=== PATIENT | female | born 1955 | race African-American/Black ===

== ENCOUNTER 2020-03-15 20:21 | Emergency (ER) | payer OTHER ==
[~2020-03-15] VITALS: Ht 167.6 cm; Wt 80.0 kg
[2020-03-15 21:41] LABS: BASOPHILS % 0.3 % (0.0-2.0); EOSINOPHILS % 0.2 % (0.0-5.0); HEMATOCRIT. 35.9 % (36.0-48.0); HEMOGLOBIN. 11.8 g/dL (12.0-16.0); LYMPHOCYTES % 9.5 % (20.0-50.0); MEAN CORPUSCULAR HEMOGLOBIN 28.4 pg (28.0-32.0); MEAN CORPUSCULAR VOLUME 86.5 fL (81.0-99.0); MEAN PLATELET VOLUME 8.2 fl (7.4-10.4); MONOCYTES % 6.3 % (2.0-8.0); NEUTROPHILS % 83.7 % (40.0-76.0); PLATELET 250 x1000/uL (130-400); RED BLOOD CELL COUNT 4.15 mill/uL (4.2-5.4); RED CELL DISTRIBUTION WIDTH 14.7 % (11.6-14.6)
[2020-03-15 21:47] LABS: CHLORIDE 101 mEq/L (98-107)
[2020-03-16 02:14] VITALS: BP 142/81
== END 2020-03-16 02:43 | disposition home or self-care (01) ==
LOC: ER 20:21
DX: J06.9 Acute upper respiratory infection, unspecified (principal); R06.00 Dyspnea, unspecified; F17.290 Nicotine dependence, other tobacco product, uncomplicated
CPT/HCPCS: 36415; 71045; 80053; 83880; 84484; 85025; 87635; 93005; 99285; 99406; C9803

== ENCOUNTER 2020-03-19 11:13 | Inpatient (IN) | payer OTHER ==
[~2020-03-19] VITALS: Ht 162.6 cm; Wt 69.9 kg
[2020-03-19 12:10] LABS: BASOPHILS % 0.4 % (0.0-2.0); EOSINOPHILS % 0.1 % (0.0-5.0); HEMOGLOBIN. 12.3 g/dL (12.0-16.0); LYMPHOCYTES % 10.7 % (20.0-50.0); MEAN CORPUSCULAR HEMOGLOBIN 27.7 pg (28.0-32.0); MEAN CORPUSCULAR VOLUME 85.6 fL (81.0-99.0); MONOCYTES % 4.1 % (2.0-8.0); NEUTROPHILS % 84.7 % (40.0-76.0); PLATELET 282 x1000/uL (130-400); RED BLOOD CELL COUNT 4.44 mill/uL (4.2-5.4); RED CELL DISTRIBUTION WIDTH 14.9 % (11.6-14.6)
[2020-03-19 12:18] LABS: CHLORIDE 101 mEq/L (98-107)
[2020-03-19] MEDS ORDERED: SODIUM CHLORIDE 0.9% 1000ML BAG (SEPSIS BOLUS) IV ONE (12:45)
[2020-03-19] MEDS ORDERED: VANCOMYCIN 1 G PREMIX 200 ML IV ONE (12:45)
[2020-03-19] MEDS ORDERED: PIPERACILLIN/TAZ 3.375G PREMIX 50 ML IV ONE (12:45)
[2020-03-19 13:20] LABS: INR 1.1
[2020-03-19 16:00] VITALS: BP 146/85
[2020-03-19 17:42] VITALS: BP 146/85
[2020-03-19] MEDS ORDERED: INFLUENZA VACCINE 05/PF 0.5 ML VIAL IM ONE (18:00)
[2020-03-19] MEDS ORDERED: IPRATROPIUM/ALBUTEROL 0.5-3(2.5)MG/3ML NEB HHN PRN (18:45)
[2020-03-19] MEDS ORDERED: ACETAMINOPHEN 325MG TABLET PO PRN (18:45)
[2020-03-19] MEDS ORDERED: ZOLPIDEM TARTRATE 5MG TABLET PO PRN (18:45)
[2020-03-19 20:00] VITALS: BP 152/72
[2020-03-19] MEDS: PIPERACILLIN/TAZOBACTAM 3.375 G in DEXT 5% WATER 100 ML IV SCH (20:43)
[2020-03-19] MEDS: ENOXAPARIN 40MG/0.4ML SYR SUBCUT SCH (21:03)
[2020-03-19] MEDS: AZITHROMYCIN 500 MG in DEXT 5% WATER 250 ML IV SCH (21:12)
[2020-03-19] MEDS ORDERED: SODIUM CHLORIDE 0.9% INJ 3ML FLUSH IVF SCH (22:00)
[2020-03-20] VITALS: BP 129/72
[2020-03-20] MEDS: PIPERACILLIN/TAZOBACTAM 3.375 G in DEXT 5% WATER 100 ML IV SCH ×4 (02:10→21:40)
[2020-03-20 04:41] VITALS: BP 131/86
[2020-03-20 08:00] VITALS: BP 144/73
[2020-03-20 11:00] LABS: EOSINOPHILS % 0.6 % (0.0-5.0); HEMATOCRIT. 40.7 % (36.0-48.0); HEMOGLOBIN. 13.5 g/dL (12.0-16.0); LYMPHOCYTES % 18.4 % (20.0-50.0); MEAN CORPUSCULAR HEMOGLOBIN 28.1 pg (28.0-32.0); MEAN CORPUSCULAR VOLUME 85.1 fL (81.0-99.0); MEAN PLATELET VOLUME 8.5 fl (7.4-10.4); MONOCYTES % 5.3 % (2.0-8.0); NEUTROPHILS % 74.7 % (40.0-76.0); PLATELET 278 x1000/uL (130-400); RED BLOOD CELL COUNT 4.79 mill/uL (4.2-5.4); RED CELL DISTRIBUTION WIDTH 14.7 % (11.6-14.6)
[2020-03-20 12:00] VITALS: BP 119/77
[2020-03-20 12:02] LABS: CHLORIDE 95 mEq/L (98-107)
[2020-03-20] MEDS ORDERED: ALBU18HF2 IH (13:11)
[2020-03-20] MEDS ORDERED: IPRA3AMP9 NEB (13:11)
[2020-03-20] MEDS ORDERED: LEVO750T21 MT (13:11)
[2020-03-20] MEDS ORDERED: FLUT1DIS3 INH (13:11)
[2020-03-20] MEDS ORDERED: POTASSIUM CHLORIDE 20MEQ TABLET SR PO NR (13:30)
[2020-03-20 17:19] LABS: BG BASE EXCESS 4.4 mmol/L (-2.0-2.0); BG CARBOXYHEMOGLOBIN 0.6 % (0.5-1.5); BG METHEMOGLOBIN 0.2 % (0.0-1.5); BG OXYHEMOGLOBIN 96.2 % (94.0-97.0); BG PCO2 29.9 mmHg (35.0-45.0); BG PH 7.557 (7.350-7.450); BG PO2 87.8 mmHg (75.0-100.0); BG SAMPLE SITE LEFT RADIAL; BG TOTAL HEMOGLOBIN 13.7 g/dL (12.0-18.0); BG VENT MODE ROOM AIR
[2020-03-20 20:00] VITALS: BP 115/68
[2020-03-20] MEDS: ENOXAPARIN 40MG/0.4ML SYR SUBCUT SCH (22:00)
[2020-03-20] MEDS: AZITHROMYCIN 500 MG in DEXT 5% WATER 250 ML IV SCH (22:19)
[2020-03-20 23:56] LABS: CLARITY URINE CLEAR (CLEAR); COLOR URINE DARK YELLOW (YELLOW); KETONES URINE 1+ (NEGATIVE); LEUKOCYTE ESTERASE URINE TRACE (NEGATIVE); NITRITE URINE NEGATIVE (NEGATIVE); OCCULT BLOOD URINE NEGATIVE (NEGATIVE); PROTEIN URINE NEGATIVE (NEGATIVE); SPECIFIC GRAVITY URINE 1.016 (1.005-1.030)
[2020-03-21] VITALS: BP 132/62
[2020-03-21 00:51] LABS: *AMPHETAMINES SCREEN URINE NEGATIVE (NEGATIVE); *BARBITURATES SCREEN URINE NEGATIVE (NEGATIVE); *BENZODIAZEPINES SCREEN URINE NEGATIVE (NEGATIVE); *COCAINE SCREEN URINE NEGATIVE (NEGATIVE); CANNABINOID URINE SCREEN NEGATIVE (NEGATIVE); METHADONE URINE SCREEN NEGATIVE (NEGATIVE); OPIATES URINE SCREEN NEGATIVE (NEGATIVE); PHENCYCLIDINE URINE SCREEN NEGATIVE (NEGATIVE)
[2020-03-21 03:11] VITALS: BP 128/65
[2020-03-21 04:00] VITALS: BP 128/65
[2020-03-21 08:00] VITALS: BP 153/82
[2020-03-21 12:00] VITALS: BP 136/80
[2020-03-22] MEDS ORDERED: AZITHROMYCIN 500 MG TABLET PO SCH (20:00)
== END 2020-03-21 12:45 | disposition home or self-care (01) | DRG 871 ==
LOC: ER 11:13 → EDBEDREQ 12:44 → EDBEDREQSVC 12:44 → EDBEDREQTM 12:44 → 8WST 14:13 → EDBEDREQTM 14:16 → EDBEDREQ 14:16 → ENRESERV 14:54
PROVIDERS: ADMIT Ophthalmology; ATTEND Ophthalmology
DX: A41.9 Sepsis, unspecified organism (principal); E43 Unspecified severe protein-calorie malnutrition; J18.9 Pneumonia, unspecified organism; E87.1 Hypo-osmolality and hyponatremia; J44.0 Chronic obstructive pulmonary disease with (acute) lower respiratory infection; N39.0 Urinary tract infection, site not specified; I10 Essential (primary) hypertension; Z68.26 Body mass index [BMI] 26.0-26.9, adult; Z79.899 Other long term (current) drug therapy; J44.9 Chronic obstructive pulmonary disease, unspecified; Z87.891 Personal history of nicotine dependence
CPT/HCPCS: 36415; 36600; 71045; 71250; 80048; 80053; 80305; 81003; 82375; 82805; 83605; 84145; 84443; 84484; 85025; 90686; 93005; 96365; 99285; C1893; J0456; J1650; J2543; J3370; J7030; J7060

== ENCOUNTER 2020-03-21 14:43 | Emergency (ER) | payer OTHER ==
[~2020-03-21] VITALS: Ht 167.6 cm; Wt 85.0 kg
[~2020-03-21 14:43] MED LIST: ALBU18HF2 IH; FLUT1DIS3 INH; IPRA3AMP9 NEB; LEVO750T21 MT
[2020-03-21 16:41] LABS: BASOPHILS % 0.8 % (0.0-2.0); EOSINOPHILS % 0.1 % (0.0-5.0); HEMATOCRIT. 38.7 % (36.0-48.0); HEMOGLOBIN. 12.7 g/dL (12.0-16.0); LYMPHOCYTES % 18.9 % (20.0-50.0); MEAN CORPUSCULAR VOLUME 85.2 fL (81.0-99.0); MEAN PLATELET VOLUME 8.8 fl (7.4-10.4); MONOCYTES % 7.8 % (2.0-8.0); NEUTROPHILS % 72.4 % (40.0-76.0); PLATELET 306 x1000/uL (130-400); RED BLOOD CELL COUNT 4.55 mill/uL (4.2-5.4); RED CELL DISTRIBUTION WIDTH 14.7 % (11.6-14.6)
[2020-03-21 16:52] LABS: CHLORIDE 97 mEq/L (98-107)
[2020-03-21] MEDS ORDERED: SODIUM CHLORIDE 0.9% 1,000 ML IV ONE (17:00)
[2020-03-21] MEDS ORDERED: VANCOMYCIN 1 G PREMIX 200 ML IV NR (17:30)
[2020-03-21] MEDS ORDERED: PIPERACILLIN/TAZ 3.375G PREMIX 50 ML IV NR (17:30)
[2020-03-21] MEDS ORDERED: SODIUM CHLORIDE 0.9% 1000ML BAG (SEPSIS BOLUS) IV NR (17:30)
[2020-03-21 18:24] LABS: CLARITY URINE CLEAR (CLEAR); COLOR URINE ORANGE (YELLOW); KETONES URINE 1+ (NEGATIVE); LEUKOCYTE ESTERASE URINE NEGATIVE (NEGATIVE); NITRITE URINE NEGATIVE (NEGATIVE); OCCULT BLOOD URINE NEGATIVE (NEGATIVE); PROTEIN URINE NEGATIVE (NEGATIVE)
[2020-03-21 23:10] VITALS: BP 148/71
== END 2020-03-22 | disposition short-term general hospital (02) ==
LOC: ER 14:43 → CANBEDREQ 03-22 01:53
DX: A41.9 Sepsis, unspecified organism (principal); R65.20 Severe sepsis without septic shock; G93.49 Other encephalopathy; J44.9 Chronic obstructive pulmonary disease, unspecified
CPT/HCPCS: 36415; 70450; 71045; 80053; 81003; 83605; 83880; 84145; 84484; 85025; 87086; 93005; 96365; 96367; 99285; J2543; J3370

== ENCOUNTER 2020-05-31 07:23 | Inpatient (IN) | payer OTHER ==
[~2020-05-31] VITALS: Ht 165.1 cm; Wt 117.9 kg
[2020-05-31 10:15] LABS: HEMATOCRIT. 36.6 % (36.0-48.0); HEMOGLOBIN. 11.6 g/dL (12.0-16.0); MEAN CORPUSCULAR HEMOGLOBIN 25.5 pg (28.0-32.0); MEAN CORPUSCULAR VOLUME 80.8 fL (81.0-99.0); MEAN PLATELET VOLUME 8.7 fl (7.4-10.4); PLATELET 209 x1000/uL (130-400); RED BLOOD CELL COUNT 4.53 mill/uL (4.2-5.4); RED CELL DISTRIBUTION WIDTH 15.2 % (11.6-14.6)
[2020-05-31] MEDS ORDERED: AZITHROMYCIN 500 MG in DEXT 5% WATER 250 ML IV ONE (10:15)
[2020-05-31] MEDS ORDERED: CEFTRIAXONE 1 G PREMIX 50 ML IV ONE (10:15)
[2020-05-31 10:20] LABS: CHLORIDE 105 mEq/L (98-107)
[2020-05-31 10:28] LABS: D-DIMER 1.26 mg/L FEU (<0.50); PROTHROMBIN TIME 10.5 sec (9.6-11.0)
[2020-05-31 10:29] LABS: CREATINE KINASE 91 IU/L (26-192)
[2020-05-31 11:04] LABS: PLATELET ESTIMATE NORMAL
[2020-05-31 13:30] LABS: BG CARBOXYHEMOGLOBIN 0.4 % (0.5-1.5); BG DEOXYHEMOGLOBIN 2.7 % (0.0-5.0); BG METHEMOGLOBIN 0.4 % (0.0-1.5); BG OXYGEN SATURATION 97.3 % (92.0-98.5); BG OXYHEMOGLOBIN 96.5 % (94.0-97.0); BG PCO2 54.4 mmHg (35.0-45.0); BG PH 7.313 (7.350-7.450); BG PO2 105.1 mmHg (75.0-100.0); BG SAMPLE SITE RIGHT RADIAL; BG TOTAL HEMOGLOBIN 11.6 g/dL (12.0-18.0); BG VENT MODE NASAL CANNULA
[2020-06-01] VITALS: BP 122/63
[2020-06-01 01:31] VITALS: BP 128/73
[2020-06-01] MEDS: DEXAMETHASONE 4MG/ML 1ML VIAL IV SCH ×2 (02:52→22:41)
[2020-06-01] MEDS ORDERED: SODIUM POLYSTYRENE SULFONATE 15 G/60 ML BOT PO NR (04:00)
[2020-06-01] MEDS ORDERED: DEXAMETHASONE 4MG/ML 1ML VIAL IV SCH (06:00)
[2020-06-01] MEDS: BLOOD SUGAR DIAGNOSTIC STRIP TEST SCH ×4 (06:40→21:28)
[2020-06-01 06:46] LABS: MEAN CORPUSCULAR HEMOGLOBIN 26.1 pg (28.0-32.0); MEAN CORPUSCULAR VOLUME 80.7 fL (81.0-99.0); PLATELET 212 x1000/uL (130-400); RED BLOOD CELL COUNT 4.21 mill/uL (4.2-5.4); RED CELL DISTRIBUTION WIDTH 15.1 % (11.6-14.6)
[2020-06-01] MEDS: INSULIN LISPRO 100 UNITS/ML SUBCUT SCH ×4 (07:10→21:00)
[2020-06-01 08:00] VITALS: BP 113/68
[2020-06-01] MEDS ORDERED: ENOXAPARIN 40MG/0.4ML SYR SUBCUT SCH (09:00)
[2020-06-01 09:12] LABS: CHLORIDE 101 mEq/L (98-107)
[2020-06-01 09:21] LABS: LDL CHOLESTEROL 71 mg/dL (5-100)
[2020-06-01 09:25] LABS: HDL CHOLESTEROL 78 mg/dL (40-59)
[2020-06-01] MEDS: FAMOTIDINE 20MG TABLET PO SCH ×2 (09:53→22:41)
[2020-06-01] MEDS: SODIUM CHLORIDE 0.45% 1,000 ML IV SCH ×2 (09:54→16:20)
[2020-06-01 12:00] VITALS: BP 128/74
[2020-06-01] MEDS ORDERED: GUAIFENESIN 600MG ER TABLET PO SCH (12:00)
[2020-06-01] MEDS ORDERED: CEFTRIAXONE 1 G PREMIX 50 ML IV SCH (12:00)
[2020-06-01 13:20] LABS: BG CARBOXYHEMOGLOBIN 0.3 % (0.5-1.5); BG DEOXYHEMOGLOBIN 14.6 % (0.0-5.0); BG HCO3 ACT 30.4 mmol/L (22.0-26.0); BG METHEMOGLOBIN 0.3 % (0.0-1.5); BG OXYGEN SATURATION 85.3 % (92.0-98.5); BG OXYHEMOGLOBIN 84.8 % (94.0-97.0); BG PCO2 48.9 mmHg (35.0-45.0); BG PH 7.412 (7.350-7.450); BG PO2 48.6 mmHg (75.0-100.0); BG SAMPLE SITE RIGHT RADIAL; BG TOTAL HEMOGLOBIN 10.9 g/dL (12.0-18.0); BG VENT MODE ROOM AIR
[2020-06-01] MEDS: CEFTRIAXONE 1,000 MG in DEXTROSE 5% WATER 50 ML IV SCH (14:58)
[2020-06-01] MEDS: ALBUTEROL 6.7GM HFA INHALER ORI SCH ×3 (14:59→22:40)
[2020-06-01] MEDS ORDERED: HYDROCODONE/ACETAMINOPHEN 5/325MG TABLET PO PRN (15:45)
[2020-06-01 16:00] VITALS: BP 108/56
[2020-06-01] MEDS: AZITHROMYCIN 500 MG in DEXT 5% WATER 250 ML IV SCH (18:34)
[2020-06-01] MEDS: LORAZEPAM 2MG/ML CPJ IV PRN (18:35)
[2020-06-01 20:00] VITALS: BP 101/53
[2020-06-01] MEDS ORDERED: DIPHENHYDRAMINE 50MG/ML VIAL IM PRN (21:30)
[2020-06-01] MEDS: GUAIFENESIN 600MG ER TABLET PO SCH (22:41)
[2020-06-02] VITALS (41 sets, daily range): BP systolic 54–149; BP diastolic 24–95
[2020-06-02] MEDS: ALBUTEROL 6.7GM HFA INHALER ORI SCH ×2 (01:26→06:20)
[2020-06-02 05:54] LABS: CHLORIDE 99 mEq/L (98-107)
[2020-06-02 06:10] LABS: HEMATOCRIT. 31.6 % (36.0-48.0); HEMOGLOBIN. 10.4 g/dL (12.0-16.0); MEAN CORPUSCULAR HEMOGLOBIN 26.2 pg (28.0-32.0); MEAN CORPUSCULAR VOLUME 79.7 fL (81.0-99.0); MEAN PLATELET VOLUME 9.4 fl (7.4-10.4); PLATELET 225 x1000/uL (130-400); RED BLOOD CELL COUNT 3.96 mill/uL (4.2-5.4); RED CELL DISTRIBUTION WIDTH 14.6 % (11.6-14.6)
[2020-06-02] MEDS: SODIUM CHLORIDE 0.45% 1,000 ML IV SCH (06:19)
[2020-06-02] MEDS: BLOOD SUGAR DIAGNOSTIC STRIP TEST SCH ×4 (06:19→21:00)
[2020-06-02] MEDS: INSULIN LISPRO 100 UNITS/ML SUBCUT SCH ×4 (07:10→22:28)
[2020-06-02] MEDS: GUAIFENESIN 600MG ER TABLET PO SCH ×2 (10:29→21:00)
[2020-06-02] MEDS: ENOXAPARIN 30MG/0.3ML SYR SUBCUT SCH ×2 (10:29→22:13)
[2020-06-02] MEDS: FAMOTIDINE 20MG TABLET PO SCH ×2 (10:29→22:14)
[2020-06-02] MEDS: DEXAMETHASONE 4MG/ML 1ML VIAL IV SCH ×2 (10:30→22:14)
[2020-06-02 11:25] LABS: BG BASE EXCESS -8.2 mmol/L (-2.0-2.0); BG CARBOXYHEMOGLOBIN 0.3 % (0.5-1.5); BG DEOXYHEMOGLOBIN 7.5 % (0.0-5.0); BG FRACTION INSPIRED OXYGEN 100; BG HCO3 ACT 22.9 mmol/L (22.0-26.0); BG METHEMOGLOBIN 0.3 % (0.0-1.5); BG OXYGEN SATURATION 92.5 % (92.0-98.5); BG OXYHEMOGLOBIN 91.9 % (94.0-97.0); BG PCO2 80.6 mmHg (35.0-45.0); BG PH 7.072 (7.350-7.450); BG PO2 88.9 mmHg (75.0-100.0); BG SAMPLE SITE RIGHT RADIAL; BG TOTAL HEMOGLOBIN 11.6 g/dL (12.0-18.0)
[2020-06-02] MEDS ORDERED: SODIUM CHLORIDE 0.9% 1,000 ML IV SCH ×3 (12:15→13:00)
[2020-06-02] MEDS: LORAZEPAM 2MG/ML CPJ IV PRN (12:16)
[2020-06-02] MEDS: PROPOFOL 10MG/ML 100ML 100 ML IV PRN ×3 (12:24→22:04)
[2020-06-02] MEDS: NOREPINEPHRINE 32 MG in DEXT 5% WATER 218 ML IV PRN (13:21)
[2020-06-02] MEDS: SODIUM CHLORIDE 0.9% 1,000 ML IV SCH ×2 (13:32→23:00)
[2020-06-02] MEDS: FENTANYL CITRATE/PF 2,500 MCG in SODIUM CHLORIDE 0.9% 200 ML IV PRN (15:51)
[2020-06-02 17:28] LABS: BG BASE EXCESS 0.4 mmol/L (-2.0-2.0); BG CARBOXYHEMOGLOBIN 0.3 % (0.5-1.5); BG DEOXYHEMOGLOBIN 1.3 % (0.0-5.0); BG FRACTION INSPIRED OXYGEN 100; BG HCO3 ACT 25.5 mmol/L (22.0-26.0); BG METHEMOGLOBIN 0.3 % (0.0-1.5); BG OXYGEN SATURATION 98.7 % (92.0-98.5); BG OXYHEMOGLOBIN 98.1 % (94.0-97.0); BG PCO2 43.1 mmHg (35.0-45.0); BG PO2 148.7 mmHg (75.0-100.0); BG SAMPLE SITE RIGHT BRACHIAL; BG TOTAL HEMOGLOBIN 11.5 g/dL (12.0-18.0); BG TOTAL RESPIRATORY RATE 21 b/min; BG VENT MODE VENT - AC
[2020-06-02 18:29] LABS: PLATELET ESTIMATE NORMAL
[2020-06-02] MEDS: CEFTRIAXONE 1,000 MG in DEXTROSE 5% WATER 50 ML IV SCH (20:26)
[2020-06-02] MEDS: AZITHROMYCIN 500 MG in DEXT 5% WATER 250 ML IV SCH (21:03)
[2020-06-03] VITALS (66 sets, daily range): BP systolic 99–149; BP diastolic 52–88
[2020-06-03] MEDS: PROPOFOL 10MG/ML 100ML 100 ML IV PRN ×4 (02:39→20:01)
[2020-06-03 05:33] LABS: HEMATOCRIT. 31.2 % (36.0-48.0); HEMOGLOBIN. 10.3 g/dL (12.0-16.0); MEAN CORPUSCULAR HEMOGLOBIN 26.1 pg (28.0-32.0); MEAN CORPUSCULAR VOLUME 78.9 fL (81.0-99.0); MEAN PLATELET VOLUME 9.8 fl (7.4-10.4); PLATELET 268 x1000/uL (130-400); RED BLOOD CELL COUNT 3.95 mill/uL (4.2-5.4); RED CELL DISTRIBUTION WIDTH 14.6 % (11.6-14.6)
[2020-06-03 05:44] LABS: CHLORIDE 100 mEq/L (98-107)
[2020-06-03] MEDS: FENTANYL CITRATE/PF 2,500 MCG in SODIUM CHLORIDE 0.9% 200 ML IV PRN (07:24)
[2020-06-03] MEDS: BLOOD SUGAR DIAGNOSTIC STRIP TEST SCH ×4 (07:40→21:12)
[2020-06-03] MEDS: INSULIN LISPRO 100 UNITS/ML SUBCUT SCH ×4 (07:56→21:00)
[2020-06-03] MEDS: SODIUM CHLORIDE 0.9% 1,000 ML IV SCH ×2 (08:53→17:45)
[2020-06-03] MEDS: FAMOTIDINE 20MG TABLET PO SCH ×2 (08:53→21:19)
[2020-06-03] MEDS: GUAIFENESIN 600MG ER TABLET PO SCH ×2 (08:54→21:19)
[2020-06-03] MEDS: ENOXAPARIN 30MG/0.3ML SYR SUBCUT SCH ×2 (08:54→21:22)
[2020-06-03] MEDS: DEXAMETHASONE 4MG/ML 1ML VIAL IV SCH ×2 (09:20→21:29)
[2020-06-03 11:14] LABS: BG BASE EXCESS 2.8 mmol/L (-2.0-2.0); BG CARBOXYHEMOGLOBIN 0.3 % (0.5-1.5); BG DEOXYHEMOGLOBIN 0.8 % (0.0-5.0); BG HCO3 ACT 26.9 mmol/L (22.0-26.0); BG METHEMOGLOBIN 0.3 % (0.0-1.5); BG OXYGEN SATURATION 99.2 % (92.0-98.5); BG OXYHEMOGLOBIN 98.6 % (94.0-97.0); BG PCO2 39.3 mmHg (35.0-45.0); BG PH 7.453 (7.350-7.450); BG PO2 148.9 mmHg (75.0-100.0); BG SAMPLE SITE LEFT RADIAL; BG TOTAL HEMOGLOBIN 10.6 g/dL (12.0-18.0); BG VENT MODE VENT - AC
[2020-06-03] MEDS ORDERED: SODIUM CHLORIDE 0.9% 1,000 ML IV SCH (13:00)
[2020-06-03] MEDS: CEFTRIAXONE 1,000 MG in DEXTROSE 5% WATER 50 ML IV SCH (15:01)
[2020-06-03] MEDS: AZITHROMYCIN 500 MG in DEXT 5% WATER 250 ML IV SCH (15:07)
[2020-06-04] VITALS (44 sets, daily range): BP systolic 102–142; BP diastolic 57–89
[2020-06-04] MEDS: FENTANYL CITRATE/PF 2,500 MCG in SODIUM CHLORIDE 0.9% 200 ML IV PRN ×2 (01:57→17:00)
[2020-06-04] MEDS: PROPOFOL 10MG/ML 100ML 100 ML IV PRN ×3 (03:16→20:01)
[2020-06-04] MEDS: SODIUM CHLORIDE 0.9% 1,000 ML IV SCH ×3 (05:00→23:31)
[2020-06-04] MEDS: BLOOD SUGAR DIAGNOSTIC STRIP TEST SCH ×4 (07:40→23:29)
[2020-06-04] MEDS: INSULIN LISPRO 100 UNITS/ML SUBCUT SCH ×4 (08:10→23:30)
[2020-06-04] MEDS: ENOXAPARIN 30MG/0.3ML SYR SUBCUT SCH ×2 (09:00→20:57)
[2020-06-04] MEDS: GUAIFENESIN 600MG ER TABLET PO SCH ×2 (10:13→20:57)
[2020-06-04] MEDS: FAMOTIDINE 20MG TABLET PO SCH ×2 (10:13→20:57)
[2020-06-04] MEDS: DEXAMETHASONE 4MG/ML 1ML VIAL IV SCH (10:16)
[2020-06-04 15:16] LABS: PLATELET ESTIMATE NORMAL
[2020-06-04] MEDS: CEFTRIAXONE 1,000 MG in DEXTROSE 5% WATER 50 ML IV SCH (16:28)
[2020-06-04] MEDS: AZITHROMYCIN 500 MG in DEXT 5% WATER 250 ML IV SCH (17:39)
[2020-06-04 18:15] LABS: BG BASE EXCESS 5.7 mmol/L (-2.0-2.0); BG CARBOXYHEMOGLOBIN 0.2 % (0.5-1.5); BG DEOXYHEMOGLOBIN 3.3 % (0.0-5.0); BG FRACTION INSPIRED OXYGEN 80; BG HCO3 ACT 31.6 mmol/L (22.0-26.0); BG METHEMOGLOBIN 0.2 % (0.0-1.5); BG OXYGEN SATURATION 96.7 % (92.0-98.5); BG OXYHEMOGLOBIN 96.3 % (94.0-97.0); BG PH 7.393 (7.350-7.450); BG PO2 95.9 mmHg (75.0-100.0); BG SAMPLE SITE RIGHT RADIAL; BG TOTAL HEMOGLOBIN 10.1 g/dL (12.0-18.0); BG VENT MODE VENT - AC
[2020-06-04 21:02] LABS: BASOPHILS % 0.3 % (0.0-2.0); HEMATOCRIT. 32.9 % (36.0-48.0); HEMOGLOBIN. 10.5 g/dL (12.0-16.0); LYMPHOCYTES % 18.5 % (20.0-50.0); MEAN CORPUSCULAR HEMOGLOBIN 25.7 pg (28.0-32.0); MEAN CORPUSCULAR VOLUME 80.2 fL (81.0-99.0); MEAN PLATELET VOLUME 9.7 fl (7.4-10.4); MONOCYTES % 7.8 % (2.0-8.0); NEUTROPHILS % 73.4 % (40.0-76.0); PLATELET 235 x1000/uL (130-400); RED CELL DISTRIBUTION WIDTH 15.4 % (11.6-14.6)
[2020-06-04 21:11] LABS: CHLORIDE 103 mEq/L (98-107)
[2020-06-05] VITALS (48 sets, daily range): BP systolic 98–149; BP diastolic 59–85
[2020-06-05] MEDS: PROPOFOL 10MG/ML 100ML 100 ML IV PRN ×4 (01:48→20:29)
[2020-06-05] MEDS: INSULIN LISPRO 100 UNITS/ML SUBCUT SCH ×3 (05:12→18:00)
[2020-06-05] MEDS: BLOOD SUGAR DIAGNOSTIC STRIP TEST SCH ×3 (05:12→17:50)
[2020-06-05] MEDS: GUAIFENESIN 600MG ER TABLET PO SCH (09:00)
[2020-06-05] MEDS: DEXAMETHASONE 10 MG/ML VIAL IV SCH (09:26)
[2020-06-05] MEDS: FAMOTIDINE 20MG TABLET PO SCH ×2 (09:26→21:57)
[2020-06-05] MEDS: ENOXAPARIN 30MG/0.3ML SYR SUBCUT SCH (09:27)
[2020-06-05] MEDS: SODIUM CHLORIDE 0.9% 1,000 ML IV SCH ×2 (09:57→20:27)
[2020-06-05 12:55] LABS: BG BASE EXCESS -0.7 mmol/L (-2.0-2.0); BG CARBOXYHEMOGLOBIN 0.2 % (0.5-1.5); BG DEOXYHEMOGLOBIN 7.6 % (0.0-5.0); BG FRACTION INSPIRED OXYGEN 70; BG HCO3 ACT 24.7 mmol/L (22.0-26.0); BG METHEMOGLOBIN 0.1 % (0.0-1.5); BG OXYGEN SATURATION 92.4 % (92.0-98.5); BG OXYHEMOGLOBIN 92.1 % (94.0-97.0); BG PCO2 43.9 mmHg (35.0-45.0); BG PH 7.368 (7.350-7.450); BG PO2 70.1 mmHg (75.0-100.0); BG SAMPLE SITE RIGHT BRACHIAL; BG TOTAL HEMOGLOBIN 11.6 g/dL (12.0-18.0); BG VENT MODE VENT - AC
[2020-06-05] MEDS: FENTANYL CITRATE/PF 2,500 MCG in SODIUM CHLORIDE 0.9% 200 ML IV PRN (14:55)
[2020-06-05] MEDS: ALBUTEROL 6.7GM HFA INHALER ORI SCH (20:24)
[2020-06-06] VITALS (71 sets, daily range): BP systolic 80–204; BP diastolic 30–114
[2020-06-06] MEDS: ENOXAPARIN 30MG/0.3ML SYR SUBCUT SCH ×3 (00:39→21:52)
[2020-06-06] MEDS: BLOOD SUGAR DIAGNOSTIC STRIP TEST SCH ×4 (00:49→18:00)
[2020-06-06] MEDS: PROPOFOL 10MG/ML 100ML 100 ML IV PRN ×2 (02:00→10:16)
[2020-06-06] MEDS: FENTANYL CITRATE/PF 2,500 MCG in SODIUM CHLORIDE 0.9% 200 ML IV PRN ×2 (02:28→13:09)
[2020-06-06] MEDS: ALBUTEROL 6.7GM HFA INHALER ORI SCH (03:48)
[2020-06-06] MEDS: INSULIN LISPRO 100 UNITS/ML SUBCUT SCH ×4 (05:23→18:00)
[2020-06-06 10:06] LABS: BG BASE EXCESS -2.6 mmol/L (-2.0-2.0); BG CARBOXYHEMOGLOBIN 0.3 % (0.5-1.5); BG FRACTION INSPIRED OXYGEN 70; BG HCO3 ACT 26.2 mmol/L (22.0-26.0); BG METHEMOGLOBIN 0.2 % (0.0-1.5); BG OXYHEMOGLOBIN 96.5 % (94.0-97.0); BG PCO2 66.5 mmHg (35.0-45.0); BG PH 7.214 (7.350-7.450); BG PO2 108.2 mmHg (75.0-100.0); BG SAMPLE SITE RIGHT RADIAL; BG VENT MODE VENT - AC
[2020-06-06] MEDS: DEXAMETHASONE 10 MG/ML VIAL IV SCH (10:10)
[2020-06-06] MEDS: FAMOTIDINE 20MG TABLET PO SCH ×2 (10:11→21:52)
[2020-06-06] MEDS: SODIUM CHLORIDE 0.9% 1,000 ML IV SCH ×2 (10:17→19:13)
[2020-06-06 13:58] LABS: BASOPHILS % 0.3 % (0.0-2.0); HEMATOCRIT. 32.5 % (36.0-48.0); HEMOGLOBIN. 10.2 g/dL (12.0-16.0); LYMPHOCYTES % 13.5 % (20.0-50.0); MEAN CORPUSCULAR HEMOGLOBIN 25.1 pg (28.0-32.0); MEAN CORPUSCULAR VOLUME 80.1 fL (81.0-99.0); MEAN PLATELET VOLUME 9.3 fl (7.4-10.4); MONOCYTES % 7.5 % (2.0-8.0); NEUTROPHILS % 78.7 % (40.0-76.0); PLATELET 206 x1000/uL (130-400); RED BLOOD CELL COUNT 4.06 mill/uL (4.2-5.4); RED CELL DISTRIBUTION WIDTH 14.8 % (11.6-14.6)
[2020-06-06 14:17] LABS: CHLORIDE 109 mEq/L (98-107)
[2020-06-06 14:22] LABS: BG BASE EXCESS -1.3 mmol/L (-2.0-2.0); BG CARBOXYHEMOGLOBIN 0.4 % (0.5-1.5); BG DEOXYHEMOGLOBIN 4.6 % (0.0-5.0); BG FRACTION INSPIRED OXYGEN 70; BG HCO3 ACT 23.2 mmol/L (22.0-26.0); BG METHEMOGLOBIN 0.3 % (0.0-1.5); BG OXYGEN SATURATION 95.4 % (92.0-98.5); BG OXYHEMOGLOBIN 94.7 % (94.0-97.0); BG PCO2 38.1 mmHg (35.0-45.0); BG PH 7.403 (7.350-7.450); BG PO2 75.6 mmHg (75.0-100.0); BG SAMPLE SITE RIGHT RADIAL; BG TOTAL HEMOGLOBIN 11.2 g/dL (12.0-18.0); BG TOTAL RESPIRATORY RATE 24 b/min; BG VENT MODE VENT - AC
[2020-06-06] MEDS: NOREPINEPHRINE 32 MG in DEXT 5% WATER 218 ML IV PRN (14:41)
[2020-06-06] MEDS: GUAIFENESIN 600MG ER TABLET PO SCH ×2 (21:00→21:59)
[2020-06-07] VITALS (81 sets, daily range): BP systolic 83–157; BP diastolic 33–80
[2020-06-07] MEDS: FENTANYL CITRATE/PF 2,500 MCG in SODIUM CHLORIDE 0.9% 200 ML IV PRN ×2 (00:01→10:25)
[2020-06-07] MEDS: PROPOFOL 10MG/ML 100ML 100 ML IV PRN ×3 (00:02→10:20)
[2020-06-07] MEDS: BLOOD SUGAR DIAGNOSTIC STRIP TEST SCH ×5 (00:10→23:15)
[2020-06-07] MEDS: GUAIFENESIN 600MG ER TABLET PO SCH ×3 (00:10→21:00)
[2020-06-07] MEDS: SODIUM CHLORIDE 0.9% 1,000 ML IV SCH ×2 (05:00→12:24)
[2020-06-07] MEDS ORDERED: PROPOFOL 10MG/ML 100ML 100 ML IV PRN (05:15)
[2020-06-07] MEDS: INSULIN LISPRO 100 UNITS/ML SUBCUT SCH ×5 (06:00→23:15)
[2020-06-07 06:20] LABS: BASOPHILS % 0.4 % (0.0-2.0); HEMATOCRIT. 35.3 % (36.0-48.0); HEMOGLOBIN. 11.4 g/dL (12.0-16.0); LYMPHOCYTES % 15.5 % (20.0-50.0); MEAN CORPUSCULAR HEMOGLOBIN 25.7 pg (28.0-32.0); MEAN CORPUSCULAR VOLUME 80.1 fL (81.0-99.0); MEAN PLATELET VOLUME 10.2 fl (7.4-10.4); MONOCYTES % 5.3 % (2.0-8.0); NEUTROPHILS % 78.8 % (40.0-76.0); PLATELET 266 x1000/uL (130-400); RED BLOOD CELL COUNT 4.41 mill/uL (4.2-5.4); RED CELL DISTRIBUTION WIDTH 15.1 % (11.6-14.6)
[2020-06-07 06:25] LABS: CHLORIDE 109 mEq/L (98-107)
[2020-06-07] MEDS: DEXAMETHASONE 10 MG/ML VIAL IV SCH (10:11)
[2020-06-07] MEDS: FAMOTIDINE 20MG TABLET PO SCH ×2 (10:13→23:15)
[2020-06-07] MEDS: ENOXAPARIN 30MG/0.3ML SYR SUBCUT SCH ×2 (10:17→23:15)
[2020-06-07 10:29] LABS: BG BASE EXCESS -3.3 mmol/L (-2.0-2.0); BG CARBOXYHEMOGLOBIN 0.3 % (0.5-1.5); BG FRACTION INSPIRED OXYGEN 70; BG HCO3 ACT 23.7 mmol/L (22.0-26.0); BG METHEMOGLOBIN 0.2 % (0.0-1.5); BG OXYHEMOGLOBIN 90.5 % (94.0-97.0); BG PCO2 50.7 mmHg (35.0-45.0); BG PH 7.287 (7.350-7.450); BG PO2 68.4 mmHg (75.0-100.0); BG SAMPLE SITE RIGHT RADIAL; BG TOTAL HEMOGLOBIN 11.8 g/dL (12.0-18.0); BG VENT MODE VENT - AC
[2020-06-07] MEDS ORDERED: MIDAZOLAM HCL 100 MG in DEXT 5% WATER 80 ML IV PRN (11:45)
[2020-06-07 12:59] LABS: CLARITY URINE CLOUDY (CLEAR); COLOR URINE YELLOW (YELLOW); KETONES URINE NEGATIVE (NEGATIVE); LEUKOCYTE ESTERASE URINE 1+ (NEGATIVE); NITRITE URINE NEGATIVE (NEGATIVE); OCCULT BLOOD URINE NEGATIVE (NEGATIVE); PH URINE 5.5 (4.5-8.0); PROTEIN URINE 1+ (NEGATIVE); SPECIFIC GRAVITY URINE 1.031 (1.005-1.030)
[2020-06-07] MEDS: LORAZEPAM 2MG/ML CPJ IV PRN (15:38)
[2020-06-07] MEDS ORDERED: LORAZEPAM 2MG/ML CPJ ONE (15:38)
[2020-06-07] MEDS ORDERED: FENTANYL CITRATE/PF 1,000 MCG in SODIUM CHLORIDE 0.9% 80 ML IV PRN (16:15)
[2020-06-07] MEDS ORDERED: MIDAZOLAM HCL 100 MG in SODIUM CHLORIDE 0.9% 80 ML IV PRN (18:30)
[2020-06-07] MEDS: IPRATROPIUM/ALBUTEROL 0.5-3(2.5)MG/3ML NEB HHN SCH (20:46)
[2020-06-07] MEDS: FENTANYL CITRATE 2,500 MCG in SODIUM CHLORIDE 0.9% 200 ML IV PRN (20:52)
[2020-06-08] VITALS (92 sets, daily range): BP systolic 93–147; BP diastolic 23–92
[2020-06-08] MEDS: FENTANYL CITRATE 2,500 MCG in SODIUM CHLORIDE 0.9% 200 ML IV PRN ×3 (02:55→17:57)
[2020-06-08] MEDS: MIDAZOLAM HCL 100 MG in DEXT 5% WATER 80 ML IV PRN ×3 (02:57→23:08)
[2020-06-08] MEDS: IPRATROPIUM/ALBUTEROL 0.5-3(2.5)MG/3ML NEB HHN SCH ×3 (03:06→20:07)
[2020-06-08 05:46] LABS: CHLORIDE 110 mEq/L (98-107)
[2020-06-08 05:57] LABS: HEMATOCRIT 30.6 % (36.0-48.0); MEAN CORPUSCULAR HEMOGLOBIN 25.8 pg (28.0-32.0); MEAN CORPUSCULAR VOLUME 79.1 fL (81.0-99.0); PLATELET 188 x1000/uL (130-400); RED BLOOD CELL COUNT 3.87 mill/uL (4.2-5.4); RED CELL DISTRIBUTION WIDTH 15.3 % (11.6-14.6)
[2020-06-08] MEDS: BLOOD SUGAR DIAGNOSTIC STRIP TEST SCH ×3 (06:00→18:00)
[2020-06-08] MEDS: INSULIN LISPRO 100 UNITS/ML SUBCUT SCH ×3 (06:00→18:00)
[2020-06-08 09:09] LABS: BG BASE EXCESS -3.5 mmol/L (-2.0-2.0); BG CARBOXYHEMOGLOBIN 0.1 % (0.5-1.5); BG FRACTION INSPIRED OXYGEN 70; BG HCO3 ACT 24.4 mmol/L (22.0-26.0); BG METHEMOGLOBIN 0.3 % (0.0-1.5); BG OXYHEMOGLOBIN 96.6 % (94.0-97.0); BG PCO2 57.9 mmHg (35.0-45.0); BG PH 7.243 (7.350-7.450); BG SAMPLE SITE RIGHT RADIAL; BG TOTAL HEMOGLOBIN 11.3 g/dL (12.0-18.0); BG TOTAL RESPIRATORY RATE 23 b/min; BG VENT MODE VENT - AC
[2020-06-08] MEDS: ENOXAPARIN 30MG/0.3ML SYR SUBCUT SCH ×2 (10:57→22:44)
[2020-06-08] MEDS: DEXAMETHASONE 10 MG/ML VIAL IV SCH (10:57)
[2020-06-08] MEDS: FAMOTIDINE 20MG TABLET PO SCH ×2 (10:57→22:44)
[2020-06-08] MEDS: GUAIFENESIN 600MG ER TABLET PO SCH ×2 (10:58→20:41)
[2020-06-08 12:31] LABS: BG BASE EXCESS -1.8 mmol/L (-2.0-2.0); BG CARBOXYHEMOGLOBIN 0.2 % (0.5-1.5); BG DEOXYHEMOGLOBIN 6.6 % (0.0-5.0); BG HCO3 ACT 24.8 mmol/L (22.0-26.0); BG METHEMOGLOBIN 0.1 % (0.0-1.5); BG OXYGEN SATURATION 93.4 % (92.0-98.5); BG OXYHEMOGLOBIN 93.1 % (94.0-97.0); BG PCO2 50.4 mmHg (35.0-45.0); BG PO2 75.3 mmHg (75.0-100.0); BG SAMPLE SITE RIGHT RADIAL; BG TOTAL HEMOGLOBIN 11.7 g/dL (12.0-18.0); BG VENT MODE VENT - AC
[2020-06-08 16:18] LABS: BG BASE EXCESS -1.9 mmol/L (-2.0-2.0); BG CARBOXYHEMOGLOBIN 0.3 % (0.5-1.5); BG DEOXYHEMOGLOBIN 2.9 % (0.0-5.0); BG FRACTION INSPIRED OXYGEN 70; BG HCO3 ACT 22.9 mmol/L (22.0-26.0); BG METHEMOGLOBIN 0.3 % (0.0-1.5); BG OXYGEN SATURATION 97.1 % (92.0-98.5); BG OXYHEMOGLOBIN 96.5 % (94.0-97.0); BG PCO2 39.2 mmHg (35.0-45.0); BG PH 7.385 (7.350-7.450); BG PO2 91.8 mmHg (75.0-100.0); BG SAMPLE SITE RIGHT RADIAL; BG TOTAL HEMOGLOBIN 11.2 g/dL (12.0-18.0); BG TOTAL RESPIRATORY RATE 22 b/min; BG VENT MODE VENT - AC
[2020-06-09] VITALS (122 sets, daily range): BP systolic 92–155; BP diastolic 46–82
[2020-06-09] MEDS: FENTANYL CITRATE 2,500 MCG in SODIUM CHLORIDE 0.9% 200 ML IV PRN ×3 (01:46→18:15)
[2020-06-09] MEDS: IPRATROPIUM/ALBUTEROL 0.5-3(2.5)MG/3ML NEB HHN SCH ×5 (02:17→20:50)
[2020-06-09] MEDS: BLOOD SUGAR DIAGNOSTIC STRIP TEST SCH ×4 (06:00→18:36)
[2020-06-09] MEDS: INSULIN LISPRO 100 UNITS/ML SUBCUT SCH ×4 (06:00→18:36)
[2020-06-09 06:21] LABS: CHLORIDE 110 mEq/L (98-107)
[2020-06-09 06:22] LABS: BASOPHILS % 0.1 % (0.0-2.0); HEMATOCRIT. 29.9 % (36.0-48.0); HEMOGLOBIN. 9.6 g/dL (12.0-16.0); LYMPHOCYTES % 13.3 % (20.0-50.0); MEAN CORPUSCULAR HEMOGLOBIN 25.3 pg (28.0-32.0); MEAN CORPUSCULAR VOLUME 78.6 fL (81.0-99.0); MEAN PLATELET VOLUME 9.3 fl (7.4-10.4); MONOCYTES % 7.1 % (2.0-8.0); NEUTROPHILS % 79.5 % (40.0-76.0); PLATELET 135 x1000/uL (130-400); RED BLOOD CELL COUNT 3.81 mill/uL (4.2-5.4); RED CELL DISTRIBUTION WIDTH 15.1 % (11.6-14.6)
[2020-06-09] MEDS: MIDAZOLAM HCL 100 MG in DEXT 5% WATER 80 ML IV PRN ×3 (06:59→21:39)
[2020-06-09] MEDS: ENOXAPARIN 30MG/0.3ML SYR SUBCUT SCH ×2 (09:02→21:40)
[2020-06-09] MEDS: DEXAMETHASONE 10 MG/ML VIAL IV SCH (09:02)
[2020-06-09] MEDS: GUAIFENESIN 600MG ER TABLET PO SCH ×2 (09:02→21:00)
[2020-06-09] MEDS: FAMOTIDINE 20MG TABLET PO SCH ×2 (09:02→21:41)
[2020-06-09 13:22] LABS: BG BASE EXCESS -4.5 mmol/L (-2.0-2.0); BG CARBOXYHEMOGLOBIN 0.3 % (0.5-1.5); BG DEOXYHEMOGLOBIN 15.4 % (0.0-5.0); BG FRACTION INSPIRED OXYGEN 60; BG METHEMOGLOBIN 0.3 % (0.0-1.5); BG OXYGEN SATURATION 84.5 % (92.0-98.5); BG PCO2 34.9 mmHg (35.0-45.0); BG PH 7.377 (7.350-7.450); BG PO2 50.3 mmHg (75.0-100.0); BG SAMPLE SITE RIGHT RADIAL; BG TOTAL HEMOGLOBIN 9.9 g/dL (12.0-18.0); BG TOTAL RESPIRATORY RATE 22 b/min; BG VENT MODE VENT - AC
[2020-06-09] MEDS ORDERED: ACETAMINOPHEN 650MG SUPP PR PRN (14:15)
[2020-06-09] MEDS: CHOLECALCIFEROL (D3) 1000 UNIT TABLET PO SCH (14:15)
[2020-06-09] MEDS: ZINC SULFATE 220 MG ( 50 ) CAPSULE PO SCH (14:15)
[2020-06-09] MEDS ORDERED: ONDANSETRON HCL 4MG/2ML INJ IV PRN (14:15)
[2020-06-09] MEDS: ASCORBIC ACID 500 MG TABLET PO SCH (21:40)
[2020-06-10] VITALS (91 sets, daily range): BP systolic 80–167; BP diastolic 28–111
[2020-06-10] MEDS: FENTANYL CITRATE 2,500 MCG in SODIUM CHLORIDE 0.9% 200 ML IV PRN ×2 (01:58→08:52)
[2020-06-10] MEDS: IPRATROPIUM/ALBUTEROL 0.5-3(2.5)MG/3ML NEB HHN SCH ×5 (02:59→16:19)
[2020-06-10 05:09] LABS: HEMATOCRIT 30.7 % (36.0-48.0); HEMOGLOBIN 9.8 g/dL (12.0-16.0); MEAN CORPUSCULAR HEMOGLOBIN 25.3 pg (28.0-32.0); MEAN CORPUSCULAR VOLUME 79.2 fL (81.0-99.0); PLATELET 139 x1000/uL (130-400); RED BLOOD CELL COUNT 3.88 mill/uL (4.2-5.4)
[2020-06-10 05:11] LABS: CHLORIDE 109 mEq/L (98-107)
[2020-06-10] MEDS: INSULIN LISPRO 100 UNITS/ML SUBCUT SCH ×3 (06:00→12:00)
[2020-06-10] MEDS: BLOOD SUGAR DIAGNOSTIC STRIP TEST SCH ×3 (06:00→12:00)
[2020-06-10] MEDS: MIDAZOLAM HCL 100 MG in DEXT 5% WATER 80 ML IV PRN (08:45)
[2020-06-10 09:02] LABS: BG BASE EXCESS -1.2 mmol/L (-2.0-2.0); BG CARBOXYHEMOGLOBIN 0.3 % (0.5-1.5); BG DEOXYHEMOGLOBIN 3.2 % (0.0-5.0); BG FRACTION INSPIRED OXYGEN 70; BG HCO3 ACT 23.3 mmol/L (22.0-26.0); BG METHEMOGLOBIN 0.3 % (0.0-1.5); BG OXYGEN SATURATION 96.8 % (92.0-98.5); BG OXYHEMOGLOBIN 96.2 % (94.0-97.0); BG PH 7.405 (7.350-7.450); BG PO2 94.9 mmHg (75.0-100.0); BG SAMPLE SITE LEFT RADIAL; BG TOTAL HEMOGLOBIN 10.3 g/dL (12.0-18.0); BG TOTAL RESPIRATORY RATE 22 b/min; BG VENT MODE VENT - AC
[2020-06-10] MEDS: ENOXAPARIN 30MG/0.3ML SYR SUBCUT SCH ×2 (09:49→22:07)
[2020-06-10] MEDS: CHOLECALCIFEROL (D3) 1000 UNIT TABLET PO SCH (09:49)
[2020-06-10] MEDS: DEXAMETHASONE 10 MG/ML VIAL IV SCH (09:49)
[2020-06-10] MEDS: ASCORBIC ACID 500 MG TABLET PO SCH ×2 (09:50→22:06)
[2020-06-10] MEDS: FAMOTIDINE 20MG TABLET PO SCH ×2 (09:50→22:06)
[2020-06-10] MEDS: ZINC SULFATE 220 MG ( 50 ) CAPSULE PO SCH (09:50)
[2020-06-10] MEDS: GUAIFENESIN 600MG ER TABLET PO SCH ×2 (09:51→22:07)
[2020-06-11] VITALS (79 sets, daily range): BP systolic 89–159; BP diastolic 41–112
[2020-06-11] MEDS: FENTANYL CITRATE 2,500 MCG in SODIUM CHLORIDE 0.9% 200 ML IV PRN ×3 (01:56→23:42)
[2020-06-11] MEDS: INSULIN LISPRO 100 UNITS/ML SUBCUT SCH ×4 (06:00→18:00)
[2020-06-11] MEDS: DEXTROSE 50% WATER 50ML SYRINGE IV PRN ×3 (06:01→12:30)
[2020-06-11] MEDS: BLOOD SUGAR DIAGNOSTIC STRIP TEST SCH ×4 (06:20→17:39)
[2020-06-11 06:23] LABS: CHLORIDE 111 mEq/L (98-107)
[2020-06-11 08:44] LABS: BASOPHILS % 0.6 % (0.0-2.0); EOSINOPHILS % 0.3 % (0.0-5.0); HEMATOCRIT. 35.4 % (36.0-48.0); HEMOGLOBIN. 11.2 g/dL (12.0-16.0); LYMPHOCYTES % 12.9 % (20.0-50.0); MEAN CORPUSCULAR HEMOGLOBIN 25.2 pg (28.0-32.0); MEAN CORPUSCULAR VOLUME 79.6 fL (81.0-99.0); MEAN PLATELET VOLUME 9.3 fl (7.4-10.4); NEUTROPHILS % 80.2 % (40.0-76.0); PLATELET 193 x1000/uL (130-400); RED BLOOD CELL COUNT 4.44 mill/uL (4.2-5.4); RED CELL DISTRIBUTION WIDTH 15.2 % (11.6-14.6)
[2020-06-11] MEDS: IPRATROPIUM/ALBUTEROL 0.5-3(2.5)MG/3ML NEB HHN SCH ×5 (09:05→21:10)
[2020-06-11] MEDS: ENOXAPARIN 30MG/0.3ML SYR SUBCUT SCH ×2 (09:55→23:12)
[2020-06-11] MEDS: DEXAMETHASONE 4MG/ML 1ML VIAL IV SCH (09:56)
[2020-06-11] MEDS: ZINC SULFATE 220 MG ( 50 ) CAPSULE PO SCH (09:56)
[2020-06-11] MEDS: FAMOTIDINE 20MG TABLET PO SCH ×2 (09:56→23:11)
[2020-06-11] MEDS: ASCORBIC ACID 500 MG TABLET PO SCH ×2 (09:59→23:11)
[2020-06-11] MEDS: CHOLECALCIFEROL (D3) 1000 UNIT TABLET PO SCH (09:59)
[2020-06-11] MEDS: GUAIFENESIN 600MG ER TABLET PO SCH ×2 (09:59→23:11)
[2020-06-11] MEDS: MIDAZOLAM HCL 100 MG in DEXT 5% WATER 80 ML IV PRN ×2 (14:39→23:02)
[2020-06-11] MEDS: LORAZEPAM 2MG/ML CPJ IV PRN (21:20)
[2020-06-12] VITALS (82 sets, daily range): BP systolic 93–146; BP diastolic 54–86
[2020-06-12] MEDS: IPRATROPIUM/ALBUTEROL 0.5-3(2.5)MG/3ML NEB HHN SCH ×3 (03:53→21:30)
[2020-06-12] MEDS: INSULIN LISPRO 100 UNITS/ML SUBCUT SCH ×4 (06:00→18:30)
[2020-06-12] MEDS: BLOOD SUGAR DIAGNOSTIC STRIP TEST SCH ×4 (06:39→18:09)
[2020-06-12] MEDS: MIDAZOLAM HCL 100 MG in DEXT 5% WATER 80 ML IV PRN ×2 (08:00→21:59)
[2020-06-12] MEDS: FENTANYL CITRATE 2,500 MCG in SODIUM CHLORIDE 0.9% 200 ML IV PRN ×3 (08:03→22:00)
[2020-06-12] MEDS: GUAIFENESIN 600MG ER TABLET PO SCH ×2 (08:26→23:09)
[2020-06-12] MEDS: CHOLECALCIFEROL (D3) 1000 UNIT TABLET PO SCH (08:26)
[2020-06-12] MEDS: DEXAMETHASONE 4MG/ML 1ML VIAL IV SCH (08:26)
[2020-06-12] MEDS: FAMOTIDINE 20MG TABLET PO SCH ×2 (08:26→23:08)
[2020-06-12] MEDS: ASCORBIC ACID 500 MG TABLET PO SCH ×2 (08:26→23:08)
[2020-06-12] MEDS: ENOXAPARIN 30MG/0.3ML SYR SUBCUT SCH ×2 (08:27→23:08)
[2020-06-12] MEDS: ZINC SULFATE 220 MG ( 50 ) CAPSULE PO SCH (09:00)
[2020-06-12 11:38] LABS: BG CARBOXYHEMOGLOBIN 0.1 % (0.5-1.5); BG DEOXYHEMOGLOBIN 4.5 % (0.0-5.0); BG FRACTION INSPIRED OXYGEN 55; BG METHEMOGLOBIN 0.2 % (0.0-1.5); BG OXYGEN SATURATION 95.5 % (92.0-98.5); BG OXYHEMOGLOBIN 95.2 % (94.0-97.0); BG PCO2 40.1 mmHg (35.0-45.0); BG PH 7.377 (7.350-7.450); BG PO2 84.2 mmHg (75.0-100.0); BG SAMPLE SITE LEFT RADIAL; BG TOTAL HEMOGLOBIN 10.3 g/dL (12.0-18.0); BG TOTAL RESPIRATORY RATE 33 b/min; BG VENT MODE VENT - AC
[2020-06-12] MEDS ORDERED: LACTULOSE 20G/30ML UDC PO NR (13:00)
[2020-06-12] MEDS: LORAZEPAM 2MG/ML CPJ IV PRN (15:21)
[2020-06-12 16:21] LABS: BG BASE EXCESS -1.4 mmol/L (-2.0-2.0); BG FRACTION INSPIRED OXYGEN 55; BG HCO3 ACT 26.1 mmol/L (22.0-26.0); BG METHEMOGLOBIN 0.3 % (0.0-1.5); BG OXYHEMOGLOBIN 88.7 % (94.0-97.0); BG PCO2 57.1 mmHg (35.0-45.0); BG PH 7.278 (7.350-7.450); BG PO2 64.7 mmHg (75.0-100.0); BG SAMPLE SITE LEFT RADIAL; BG TOTAL HEMOGLOBIN 11.4 g/dL (12.0-18.0); BG TOTAL RESPIRATORY RATE 28 b/min; BG VENT MODE VENT - CPAP
[2020-06-13] VITALS (82 sets, daily range): BP systolic 65–169; BP diastolic 27–126
[2020-06-13] MEDS: BLOOD SUGAR DIAGNOSTIC STRIP TEST SCH ×5 (00:51→23:30)
[2020-06-13] MEDS: IPRATROPIUM/ALBUTEROL 0.5-3(2.5)MG/3ML NEB HHN SCH ×5 (03:51→22:00)
[2020-06-13] MEDS: INSULIN LISPRO 100 UNITS/ML SUBCUT SCH ×5 (06:00→23:30)
[2020-06-13 06:12] LABS: CHLORIDE 108 mEq/L (98-107)
[2020-06-13 06:18] LABS: BASOPHILS % 0.2 % (0.0-2.0); EOSINOPHILS % 0.3 % (0.0-5.0); HEMATOCRIT. 29.7 % (36.0-48.0); HEMOGLOBIN. 9.7 g/dL (12.0-16.0); LYMPHOCYTES % 10.2 % (20.0-50.0); MEAN CORPUSCULAR HEMOGLOBIN 25.5 pg (28.0-32.0); MEAN CORPUSCULAR VOLUME 78.4 fL (81.0-99.0); MEAN PLATELET VOLUME 9.5 fl (7.4-10.4); MONOCYTES % 7.7 % (2.0-8.0); NEUTROPHILS % 81.6 % (40.0-76.0); PLATELET 155 x1000/uL (130-400); RED BLOOD CELL COUNT 3.78 mill/uL (4.2-5.4); RED CELL DISTRIBUTION WIDTH 15.1 % (11.6-14.6)
[2020-06-13] MEDS: ZINC SULFATE 220 MG ( 50 ) CAPSULE PO SCH (08:17)
[2020-06-13] MEDS: FAMOTIDINE 20MG TABLET PO SCH ×2 (08:17→22:12)
[2020-06-13] MEDS: ASCORBIC ACID 500 MG TABLET PO SCH ×2 (08:17→22:12)
[2020-06-13] MEDS: DEXAMETHASONE 4MG/ML 1ML VIAL IV SCH (08:17)
[2020-06-13] MEDS: ENOXAPARIN 30MG/0.3ML SYR SUBCUT SCH ×2 (08:19→21:00)
[2020-06-13] MEDS: CHOLECALCIFEROL (D3) 1000 UNIT TABLET PO SCH (08:23)
[2020-06-13] MEDS: GUAIFENESIN 600MG ER TABLET PO SCH (08:23)
[2020-06-13 10:25] LABS: BG CARBOXYHEMOGLOBIN 0.4 % (0.5-1.5); BG DEOXYHEMOGLOBIN 10.5 % (0.0-5.0); BG FRACTION INSPIRED OXYGEN 45; BG METHEMOGLOBIN 0.3 % (0.0-1.5); BG OXYGEN SATURATION 89.4 % (92.0-98.5); BG OXYHEMOGLOBIN 88.8 % (94.0-97.0); BG PCO2 43.2 mmHg (35.0-45.0); BG PH 7.398 (7.350-7.450); BG PO2 60.6 mmHg (75.0-100.0); BG SAMPLE SITE LEFT RADIAL; BG TOTAL HEMOGLOBIN 10.7 g/dL (12.0-18.0); BG TOTAL RESPIRATORY RATE 25 b/min; BG VENT MODE VENT - AC
[2020-06-13] MEDS: ACETYLCYSTEINE 100MG/ML 10% VIAL 4ML INH SCH (13:15)
[2020-06-13] MEDS: FENTANYL CITRATE/PF 2,500 MCG in SODIUM CHLORIDE 0.9% 200 ML IV PRN (18:36)
[2020-06-13] MEDS: MIDAZOLAM HCL 100 MG in DEXT 5% WATER 80 ML IV PRN (18:38)
[2020-06-14] VITALS (90 sets, daily range): BP systolic 92–182; BP diastolic 51–130
[2020-06-14] MEDS: MIDAZOLAM HCL 100 MG in DEXT 5% WATER 80 ML IV PRN ×3 (03:34→18:48)
[2020-06-14] MEDS: ACETYLCYSTEINE 100MG/ML 10% VIAL 4ML INH SCH ×2 (03:47→09:51)
[2020-06-14] MEDS: IPRATROPIUM/ALBUTEROL 0.5-3(2.5)MG/3ML NEB HHN SCH ×5 (03:48→21:11)
[2020-06-14] MEDS: INSULIN LISPRO 100 UNITS/ML SUBCUT SCH ×3 (06:00→18:00)
[2020-06-14] MEDS: BLOOD SUGAR DIAGNOSTIC STRIP TEST SCH ×3 (06:18→18:06)
[2020-06-14] MEDS: FENTANYL CITRATE/PF 2,500 MCG in SODIUM CHLORIDE 0.9% 200 ML IV PRN (06:41)
[2020-06-14 08:36] LABS: BG BASE EXCESS 3.1 mmol/L (-2.0-2.0); BG CARBOXYHEMOGLOBIN 0.2 % (0.5-1.5); BG DEOXYHEMOGLOBIN 12.2 % (0.0-5.0); BG HCO3 ACT 26.5 mmol/L (22.0-26.0); BG METHEMOGLOBIN 0.3 % (0.0-1.5); BG OXYGEN SATURATION 87.7 % (92.0-98.5); BG OXYHEMOGLOBIN 87.3 % (94.0-97.0); BG PCO2 36.1 mmHg (35.0-45.0); BG PH 7.484 (7.350-7.450); BG PO2 52.6 mmHg (75.0-100.0); BG SAMPLE SITE RIGHT RADIAL; BG TOTAL HEMOGLOBIN 10.3 g/dL (12.0-18.0); BG VENT MODE VENT - AC
[2020-06-14] MEDS: FAMOTIDINE 20MG TABLET PO SCH ×2 (09:14→20:55)
[2020-06-14] MEDS: ZINC SULFATE 220 MG ( 50 ) CAPSULE PO SCH (09:14)
[2020-06-14] MEDS: ASCORBIC ACID 500 MG TABLET PO SCH ×2 (09:14→20:55)
[2020-06-14] MEDS: DEXAMETHASONE 4MG/ML 1ML VIAL IV SCH (09:15)
[2020-06-14] MEDS: CHOLECALCIFEROL (D3) 1000 UNIT TABLET PO SCH (09:15)
[2020-06-14] MEDS: ENOXAPARIN 30MG/0.3ML SYR SUBCUT SCH ×2 (09:15→20:56)
[2020-06-14] MEDS ORDERED: LORAZEPAM 2MG/ML CPJ IV PRN (12:00)
[2020-06-15] VITALS (88 sets, daily range): BP systolic 82–150; BP diastolic 48–109
[2020-06-15] MEDS: BLOOD SUGAR DIAGNOSTIC STRIP TEST SCH ×4 (00:32→18:32)
[2020-06-15] MEDS: IPRATROPIUM/ALBUTEROL 0.5-3(2.5)MG/3ML NEB HHN SCH ×6 (01:32→21:25)
[2020-06-15] MEDS: FENTANYL CITRATE/PF 2,500 MCG in SODIUM CHLORIDE 0.9% 200 ML IV PRN ×2 (02:03→21:58)
[2020-06-15] MEDS: ACETYLCYSTEINE 100MG/ML 10% VIAL 4ML INH SCH ×3 (03:24→15:56)
[2020-06-15 05:14] LABS: HEMATOCRIT 28.8 % (36.0-48.0); HEMOGLOBIN 9.5 g/dL (12.0-16.0); MEAN CORPUSCULAR HEMOGLOBIN 25.4 pg (28.0-32.0); MEAN CORPUSCULAR VOLUME 76.7 fL (81.0-99.0); PLATELET 247 x1000/uL (130-400); RED BLOOD CELL COUNT 3.75 mill/uL (4.2-5.4); RED CELL DISTRIBUTION WIDTH 15.1 % (11.6-14.6)
[2020-06-15] MEDS: INSULIN LISPRO 100 UNITS/ML SUBCUT SCH ×4 (06:00→18:00)
[2020-06-15 06:15] LABS: CHLORIDE 105 mEq/L (98-107)
[2020-06-15] MEDS: ASCORBIC ACID 500 MG TABLET PO SCH ×2 (08:36→20:40)
[2020-06-15] MEDS: FAMOTIDINE 20MG TABLET PO SCH ×2 (08:36→20:40)
[2020-06-15] MEDS: ENOXAPARIN 30MG/0.3ML SYR SUBCUT SCH ×2 (08:36→20:40)
[2020-06-15] MEDS: ZINC SULFATE 220 MG ( 50 ) CAPSULE PO SCH (08:36)
[2020-06-15] MEDS: DEXAMETHASONE 4MG/ML 1ML VIAL IV SCH (08:36)
[2020-06-15] MEDS: CHOLECALCIFEROL (D3) 1000 UNIT TABLET PO SCH (08:39)
[2020-06-15 09:28] LABS: BG BASE EXCESS 3.8 mmol/L (-2.0-2.0); BG CARBOXYHEMOGLOBIN 0.3 % (0.5-1.5); BG DEOXYHEMOGLOBIN 3.2 % (0.0-5.0); BG FRACTION INSPIRED OXYGEN 70; BG HCO3 ACT 27.6 mmol/L (22.0-26.0); BG METHEMOGLOBIN 0.2 % (0.0-1.5); BG OXYGEN SATURATION 96.8 % (92.0-98.5); BG OXYHEMOGLOBIN 96.3 % (94.0-97.0); BG PCO2 38.3 mmHg (35.0-45.0); BG PH 7.475 (7.350-7.450); BG PO2 90.7 mmHg (75.0-100.0); BG SAMPLE SITE LEFT RADIAL; BG TOTAL HEMOGLOBIN 9.6 g/dL (12.0-18.0); BG TOTAL RESPIRATORY RATE 28 b/min; BG VENT MODE VENT - AC
[2020-06-15] MEDS: LACTULOSE 20G/30ML UDC PO PRN (11:42)
[2020-06-15] MEDS: DOCUSATE SODIUM SUGAR FREE 100MG/10ML UDC NG SCH ×2 (11:43→20:42)
[2020-06-15] MEDS: MIDAZOLAM HCL 100 MG in DEXT 5% WATER 80 ML IV PRN (13:49)
[2020-06-16] VITALS (96 sets, daily range): BP systolic 81–184; BP diastolic 42–116
[2020-06-16] MEDS: BLOOD SUGAR DIAGNOSTIC STRIP TEST SCH ×4 (00:06→18:25)
[2020-06-16] MEDS: ACETYLCYSTEINE 100MG/ML 10% VIAL 4ML INH SCH ×3 (02:02→21:45)
[2020-06-16] MEDS: IPRATROPIUM/ALBUTEROL 0.5-3(2.5)MG/3ML NEB HHN SCH ×5 (02:02→21:45)
[2020-06-16] MEDS: INSULIN LISPRO 100 UNITS/ML SUBCUT SCH ×4 (06:00→18:00)
[2020-06-16 06:09] LABS: BASOPHILS % 0.2 % (0.0-2.0); EOSINOPHILS % 0.1 % (0.0-5.0); HEMATOCRIT. 26.8 % (36.0-48.0); HEMOGLOBIN. 8.5 g/dL (12.0-16.0); MEAN CORPUSCULAR HEMOGLOBIN 24.7 pg (28.0-32.0); MEAN CORPUSCULAR VOLUME 77.5 fL (81.0-99.0); MEAN PLATELET VOLUME 8.8 fl (7.4-10.4); MONOCYTES % 5.9 % (2.0-8.0); NEUTROPHILS % 78.8 % (40.0-76.0); PLATELET 243 x1000/uL (130-400); RED BLOOD CELL COUNT 3.46 mill/uL (4.2-5.4)
[2020-06-16 06:14] LABS: CHLORIDE 105 mEq/L (98-107)
[2020-06-16] MEDS: ZINC SULFATE 220 MG ( 50 ) CAPSULE PO SCH (09:32)
[2020-06-16] MEDS: DEXAMETHASONE 4MG/ML 1ML VIAL IV SCH (09:32)
[2020-06-16] MEDS: FAMOTIDINE 20MG TABLET PO SCH ×2 (09:32→21:03)
[2020-06-16] MEDS: CHOLECALCIFEROL (D3) 1000 UNIT TABLET PO SCH (09:32)
[2020-06-16] MEDS: ASCORBIC ACID 500 MG TABLET PO SCH ×2 (09:32→21:03)
[2020-06-16] MEDS: ENOXAPARIN 30MG/0.3ML SYR SUBCUT SCH ×2 (09:35→21:04)
[2020-06-16] MEDS: DOCUSATE SODIUM SUGAR FREE 100MG/10ML UDC NG SCH (09:36)
[2020-06-16 09:56] LABS: BG BASE EXCESS 4.3 mmol/L (-2.0-2.0); BG CARBOXYHEMOGLOBIN 0.3 % (0.5-1.5); BG DEOXYHEMOGLOBIN 3.3 % (0.0-5.0); BG FRACTION INSPIRED OXYGEN 100; BG HCO3 ACT 27.9 mmol/L (22.0-26.0); BG METHEMOGLOBIN 0.2 % (0.0-1.5); BG OXYGEN SATURATION 96.7 % (92.0-98.5); BG OXYHEMOGLOBIN 96.2 % (94.0-97.0); BG PCO2 38.3 mmHg (35.0-45.0); BG PH 7.481 (7.350-7.450); BG PO2 87.1 mmHg (75.0-100.0); BG SAMPLE SITE RIGHT RADIAL; BG TOTAL HEMOGLOBIN 11.4 g/dL (12.0-18.0); BG TOTAL RESPIRATORY RATE 43 b/min; BG VENT MODE VENT - AC
[2020-06-16] MEDS: MIDODRINE HCL 5MG TABLET PO SCH ×2 (14:48→18:41)
[2020-06-16] MEDS: MIDAZOLAM HCL 100 MG in DEXT 5% WATER 80 ML IV PRN ×4 (15:28→18:42)
[2020-06-16] MEDS: NOREPINEPHRINE 32 MG in DEXT 5% WATER 218 ML IV PRN (15:40)
[2020-06-16] MEDS: FENTANYL CITRATE/PF 2,500 MCG in SODIUM CHLORIDE 0.9% 200 ML IV PRN (15:42)
[2020-06-16] MEDS: ACETAMINOPHEN 325MG TABLET PO PRN (22:03)
[2020-06-17] VITALS (43 sets, daily range): BP systolic 83–162; BP diastolic 38–129
[2020-06-17] MEDS: FENTANYL CITRATE/PF 2,500 MCG in SODIUM CHLORIDE 0.9% 200 ML IV PRN ×3 (00:10→18:35)
[2020-06-17] MEDS: MIDAZOLAM HCL 100 MG in DEXT 5% WATER 80 ML IV PRN ×3 (01:34→16:31)
[2020-06-17] MEDS: IPRATROPIUM/ALBUTEROL 0.5-3(2.5)MG/3ML NEB HHN SCH ×4 (02:59→20:17)
[2020-06-17 05:51] LABS: BASOPHILS % 0.5 % (0.0-2.0); CHLORIDE 102 mEq/L (98-107); EOSINOPHILS % 0.6 % (0.0-5.0); HEMATOCRIT. 28.9 % (36.0-48.0); HEMOGLOBIN. 9.6 g/dL (12.0-16.0); LYMPHOCYTES % 13.3 % (20.0-50.0); MEAN CORPUSCULAR HEMOGLOBIN 25.6 pg (28.0-32.0); MEAN PLATELET VOLUME 7.9 fl (7.4-10.4); MONOCYTES % 6.6 % (2.0-8.0); PLATELET 280 x1000/uL (130-400); RED BLOOD CELL COUNT 3.75 mill/uL (4.2-5.4); RED CELL DISTRIBUTION WIDTH 15.3 % (11.6-14.6)
[2020-06-17] MEDS: INSULIN LISPRO 100 UNITS/ML SUBCUT SCH ×4 (05:59→18:31)
[2020-06-17] MEDS: BLOOD SUGAR DIAGNOSTIC STRIP TEST SCH ×4 (05:59→18:05)
[2020-06-17 08:37] LABS: BG BASE EXCESS 4.9 mmol/L (-2.0-2.0); BG CARBOXYHEMOGLOBIN 0.3 % (0.5-1.5); BG DEOXYHEMOGLOBIN 1.5 % (0.0-5.0); BG METHEMOGLOBIN 0.3 % (0.0-1.5); BG OXYGEN SATURATION 98.5 % (92.0-98.5); BG OXYHEMOGLOBIN 97.9 % (94.0-97.0); BG PCO2 40.6 mmHg (35.0-45.0); BG PH 7.471 (7.350-7.450); BG PO2 130.2 mmHg (75.0-100.0); BG SAMPLE SITE RIGHT RADIAL; BG TOTAL HEMOGLOBIN 9.5 g/dL (12.0-18.0); BG VENT MODE VENT - AC
[2020-06-17] MEDS: ACETYLCYSTEINE 100MG/ML 10% VIAL 4ML INH SCH ×3 (08:50→20:17)
[2020-06-17] MEDS: DOCUSATE SODIUM SUGAR FREE 100MG/10ML UDC NG SCH ×3 (08:57→18:30)
[2020-06-17] MEDS: ENOXAPARIN 30MG/0.3ML SYR SUBCUT SCH ×2 (08:58→22:40)
[2020-06-17] MEDS: MIDODRINE HCL 5MG TABLET PO SCH ×3 (08:59→18:31)
[2020-06-17] MEDS: FAMOTIDINE 20MG TABLET PO SCH ×2 (08:59→22:39)
[2020-06-17] MEDS: ZINC SULFATE 220 MG ( 50 ) CAPSULE PO SCH (08:59)
[2020-06-17] MEDS: DEXAMETHASONE 4MG/ML 1ML VIAL IV SCH (08:59)
[2020-06-17] MEDS: CHOLECALCIFEROL (D3) 1000 UNIT TABLET PO SCH (08:59)
[2020-06-17] MEDS: ASCORBIC ACID 500 MG TABLET PO SCH ×2 (08:59→22:39)
[2020-06-17] MEDS: ACETAMINOPHEN 325MG TABLET PO PRN (16:53)
[2020-06-17] MEDS: NOREPINEPHRINE 32 MG in DEXT 5% WATER 218 ML IV PRN (22:42)
[2020-06-18] VITALS (65 sets, daily range): BP systolic 62–220; BP diastolic 43–97
[2020-06-18] MEDS: INSULIN LISPRO 100 UNITS/ML SUBCUT SCH ×4 (00:19→17:25)
[2020-06-18] MEDS: FENTANYL CITRATE/PF 2,500 MCG in SODIUM CHLORIDE 0.9% 200 ML IV PRN ×3 (02:00→21:15)
[2020-06-18] MEDS: IPRATROPIUM/ALBUTEROL 0.5-3(2.5)MG/3ML NEB HHN SCH ×4 (02:11→21:11)
[2020-06-18] MEDS: MIDAZOLAM HCL 100 MG in DEXT 5% WATER 80 ML IV PRN (02:44)
[2020-06-18] MEDS: BLOOD SUGAR DIAGNOSTIC STRIP TEST SCH ×4 (05:23→17:19)
[2020-06-18 05:37] LABS: CHLORIDE 102 mEq/L (98-107)
[2020-06-18] MEDS: CHOLECALCIFEROL (D3) 1000 UNIT TABLET PO SCH (08:38)
[2020-06-18] MEDS: DEXAMETHASONE 4MG/ML 1ML VIAL IV SCH (08:38)
[2020-06-18] MEDS: FAMOTIDINE 20MG TABLET PO SCH ×2 (08:38→20:45)
[2020-06-18] MEDS: DOCUSATE SODIUM SUGAR FREE 100MG/10ML UDC NG SCH ×2 (08:38→17:24)
[2020-06-18] MEDS: ZINC SULFATE 220 MG ( 50 ) CAPSULE PO SCH (08:38)
[2020-06-18] MEDS: ENOXAPARIN 30MG/0.3ML SYR SUBCUT SCH ×2 (08:38→20:45)
[2020-06-18] MEDS: MIDODRINE HCL 5MG TABLET PO SCH ×2 (08:38→13:00)
[2020-06-18] MEDS: ASCORBIC ACID 500 MG TABLET PO SCH ×2 (08:38→20:45)
[2020-06-18] MEDS: ACETYLCYSTEINE 100MG/ML 10% VIAL 4ML INH SCH ×2 (10:30→17:45)
[2020-06-18 10:41] LABS: BG BASE EXCESS 4.6 mmol/L (-2.0-2.0); BG CARBOXYHEMOGLOBIN 0.3 % (0.5-1.5); BG DEOXYHEMOGLOBIN 4.7 % (0.0-5.0); BG FRACTION INSPIRED OXYGEN 80; BG HCO3 ACT 29.3 mmol/L (22.0-26.0); BG METHEMOGLOBIN 0.2 % (0.0-1.5); BG OXYGEN SATURATION 95.3 % (92.0-98.5); BG OXYHEMOGLOBIN 94.8 % (94.0-97.0); BG PH 7.441 (7.350-7.450); BG PO2 76.4 mmHg (75.0-100.0); BG SAMPLE SITE RIGHT RADIAL; BG TOTAL HEMOGLOBIN 11.2 g/dL (12.0-18.0); BG VENT MODE VENT - AC
[2020-06-18 15:36] LABS: HEMATOCRIT. 28.6 % (36.0-48.0); HEMOGLOBIN. 9.3 g/dL (12.0-16.0); MEAN CORPUSCULAR VOLUME 76.8 fL (81.0-99.0); MEAN PLATELET VOLUME 7.9 fl (7.4-10.4); PLATELET 287 x1000/uL (130-400); RED BLOOD CELL COUNT 3.73 mill/uL (4.2-5.4); RED CELL DISTRIBUTION WIDTH 15.3 % (11.6-14.6)
[2020-06-18] MEDS: MIDAZOLAM 100MG/100ML PMX 100 ML IV PRN (16:34)
[2020-06-18] MEDS: METHYLPREDNISOLONE SOD SUCC 40 MG/ML VIAL IV SCH (17:25)
[2020-06-18] MEDS: PIPERACILLIN/TAZOBACTAM 3.375 G in DEXT 5% WATER 100 ML IV SCH (18:32)
[2020-06-18 21:00] LABS: PLATELET ESTIMATE NORMAL
[2020-06-19] VITALS (72 sets, daily range): BP systolic 64–196; BP diastolic 30–145
[2020-06-19] MEDS: METHYLPREDNISOLONE SOD SUCC 40 MG/ML VIAL IV SCH ×3 (01:07→18:42)
[2020-06-19] MEDS: PIPERACILLIN/TAZOBACTAM 3.375 G in DEXT 5% WATER 100 ML IV SCH ×4 (01:07→18:42)
[2020-06-19] MEDS: IPRATROPIUM/ALBUTEROL 0.5-3(2.5)MG/3ML NEB HHN SCH ×4 (03:22→21:25)
[2020-06-19] MEDS: BLOOD SUGAR DIAGNOSTIC STRIP TEST SCH ×4 (06:00→17:45)
[2020-06-19] MEDS: INSULIN LISPRO 100 UNITS/ML SUBCUT SCH ×4 (06:00→17:45)
[2020-06-19 06:25] LABS: HEMOGLOBIN. 8.4 g/dL (12.0-16.0); MEAN CORPUSCULAR HEMOGLOBIN 25.3 pg (28.0-32.0); MEAN CORPUSCULAR VOLUME 77.8 fL (81.0-99.0); MEAN PLATELET VOLUME 8.3 fl (7.4-10.4); PLATELET 293 x1000/uL (130-400); RED BLOOD CELL COUNT 3.34 mill/uL (4.2-5.4); RED CELL DISTRIBUTION WIDTH 15.4 % (11.6-14.6)
[2020-06-19 06:33] LABS: CHLORIDE 102 mEq/L (98-107)
[2020-06-19 08:14] LABS: NUCLEATED RED BLOOD CELLS 1 /100 WBC; PLATELET ESTIMATE NORMAL
[2020-06-19] MEDS: FENTANYL CITRATE/PF 2,500 MCG in SODIUM CHLORIDE 0.9% 200 ML IV PRN ×2 (08:53→20:14)
[2020-06-19 09:24] LABS: BG CARBOXYHEMOGLOBIN 0.7 % (0.5-1.5); BG DEOXYHEMOGLOBIN 6.6 % (0.0-5.0); BG FRACTION INSPIRED OXYGEN 80; BG HCO3 ACT 27.9 mmol/L (22.0-26.0); BG OXYGEN SATURATION 93.4 % (92.0-98.5); BG OXYHEMOGLOBIN 92.7 % (94.0-97.0); BG PCO2 50.3 mmHg (35.0-45.0); BG PH 7.362 (7.350-7.450); BG SAMPLE SITE RIGHT RADIAL; BG TOTAL HEMOGLOBIN 8.9 g/dL (12.0-18.0); BG VENT MODE VENT - AC
[2020-06-19] MEDS: DOCUSATE SODIUM SUGAR FREE 100MG/10ML UDC NG SCH ×2 (10:15→17:00)
[2020-06-19] MEDS: FAMOTIDINE 20MG TABLET PO SCH ×2 (10:16→21:12)
[2020-06-19] MEDS: ASCORBIC ACID 500 MG TABLET PO SCH ×2 (10:16→21:12)
[2020-06-19] MEDS: CHOLECALCIFEROL (D3) 1000 UNIT TABLET PO SCH (10:16)
[2020-06-19] MEDS: ENOXAPARIN 30MG/0.3ML SYR SUBCUT SCH ×2 (10:16→21:12)
[2020-06-19] MEDS: ZINC SULFATE 220 MG ( 50 ) CAPSULE PO SCH (10:16)
[2020-06-19] MEDS ORDERED: SODIUM POLYSTYRENE SULFONATE 15 G/60 ML BOT PO SCH (12:00)
[2020-06-19] MEDS: MIDAZOLAM 100MG/100ML PMX 100 ML IV PRN (15:23)
[2020-06-20] VITALS (94 sets, daily range): BP systolic 103–196; BP diastolic 44–116
[2020-06-20] MEDS: BLOOD SUGAR DIAGNOSTIC STRIP TEST SCH ×4 (00:32→17:48)
[2020-06-20] MEDS: METHYLPREDNISOLONE SOD SUCC 40 MG/ML VIAL IV SCH ×3 (00:33→17:52)
[2020-06-20] MEDS: PIPERACILLIN/TAZOBACTAM 3.375 G in DEXT 5% WATER 100 ML IV SCH ×4 (00:34→17:52)
[2020-06-20] MEDS: IPRATROPIUM/ALBUTEROL 0.5-3(2.5)MG/3ML NEB HHN SCH ×5 (00:50→21:07)
[2020-06-20] MEDS: INSULIN LISPRO 100 UNITS/ML SUBCUT SCH ×4 (06:00→17:48)
[2020-06-20] MEDS: FENTANYL CITRATE/PF 2,500 MCG in SODIUM CHLORIDE 0.9% 200 ML IV PRN ×2 (06:22→15:05)
[2020-06-20] MEDS: MIDAZOLAM 100MG/100ML PMX 100 ML IV PRN (06:23)
[2020-06-20 09:11] LABS: BG BASE EXCESS 4.8 mmol/L (-2.0-2.0); BG CARBOXYHEMOGLOBIN 0.9 % (0.5-1.5); BG DEOXYHEMOGLOBIN 4.6 % (0.0-5.0); BG HCO3 ACT 30.4 mmol/L (22.0-26.0); BG METHEMOGLOBIN 0.3 % (0.0-1.5); BG OXYGEN SATURATION 95.3 % (92.0-98.5); BG OXYHEMOGLOBIN 94.2 % (94.0-97.0); BG PCO2 51.6 mmHg (35.0-45.0); BG PH 7.388 (7.350-7.450); BG PO2 79.6 mmHg (75.0-100.0); BG SAMPLE SITE RIGHT RADIAL; BG TOTAL HEMOGLOBIN 8.1 g/dL (12.0-18.0); BG VENT MODE VENT - AC
[2020-06-20] MEDS: DOCUSATE SODIUM SUGAR FREE 100MG/10ML UDC NG SCH ×2 (09:45→17:52)
[2020-06-20] MEDS: CHOLECALCIFEROL (D3) 1000 UNIT TABLET PO SCH (09:46)
[2020-06-20] MEDS: FAMOTIDINE 20MG TABLET PO SCH ×2 (09:46→21:46)
[2020-06-20] MEDS: ASCORBIC ACID 500 MG TABLET PO SCH ×2 (09:46→21:46)
[2020-06-20] MEDS: ENOXAPARIN 30MG/0.3ML SYR SUBCUT SCH ×2 (09:46→21:46)
[2020-06-20] MEDS: ZINC SULFATE 220 MG ( 50 ) CAPSULE PO SCH (09:46)
[2020-06-20 10:44] LABS: BASOPHILS % 0.1 % (0.0-2.0); HEMATOCRIT. 25.2 % (36.0-48.0); HEMOGLOBIN. 8.1 g/dL (12.0-16.0); LYMPHOCYTES % 9.8 % (20.0-50.0); MEAN CORPUSCULAR HEMOGLOBIN 25.1 pg (28.0-32.0); MEAN CORPUSCULAR VOLUME 78.6 fL (81.0-99.0); MEAN PLATELET VOLUME 8.5 fl (7.4-10.4); MONOCYTES % 8.5 % (2.0-8.0); NEUTROPHILS % 81.6 % (40.0-76.0); PLATELET 290 x1000/uL (130-400); RED BLOOD CELL COUNT 3.21 mill/uL (4.2-5.4); RED CELL DISTRIBUTION WIDTH 15.6 % (11.6-14.6)
[2020-06-20 11:03] LABS: CHLORIDE 100 mEq/L (98-107)
[2020-06-21] VITALS (93 sets, daily range): BP systolic 91–142; BP diastolic 33–69
[2020-06-21] MEDS: METHYLPREDNISOLONE SOD SUCC 40 MG/ML VIAL IV SCH ×3 (01:20→18:07)
[2020-06-21] MEDS: PIPERACILLIN/TAZOBACTAM 3.375 G in DEXT 5% WATER 100 ML IV SCH ×4 (01:21→18:08)
[2020-06-21] MEDS: FENTANYL CITRATE/PF 2,500 MCG in SODIUM CHLORIDE 0.9% 200 ML IV PRN ×3 (02:04→17:18)
[2020-06-21] MEDS: MIDAZOLAM 100MG/100ML PMX 100 ML IV PRN ×2 (02:06→12:59)
[2020-06-21] MEDS: IPRATROPIUM/ALBUTEROL 0.5-3(2.5)MG/3ML NEB HHN SCH ×5 (03:02→20:36)
[2020-06-21 05:19] LABS: BASOPHILS % 0.7 % (0.0-2.0); EOSINOPHILS % 0.1 % (0.0-5.0); HEMATOCRIT. 23.8 % (36.0-48.0); HEMOGLOBIN. 7.8 g/dL (12.0-16.0); MEAN CORPUSCULAR HEMOGLOBIN 25.4 pg (28.0-32.0); MEAN CORPUSCULAR VOLUME 77.4 fL (81.0-99.0); MEAN PLATELET VOLUME 8.4 fl (7.4-10.4); MONOCYTES % 9.3 % (2.0-8.0); NEUTROPHILS % 79.9 % (40.0-76.0); PLATELET 269 x1000/uL (130-400); RED BLOOD CELL COUNT 3.07 mill/uL (4.2-5.4); RED CELL DISTRIBUTION WIDTH 15.2 % (11.6-14.6)
[2020-06-21 05:25] LABS: CHLORIDE 101 mEq/L (98-107)
[2020-06-21] MEDS: INSULIN LISPRO 100 UNITS/ML SUBCUT SCH ×4 (06:00→18:00)
[2020-06-21] MEDS: BLOOD SUGAR DIAGNOSTIC STRIP TEST SCH ×4 (06:54→18:00)
[2020-06-21] MEDS: FAMOTIDINE 20MG TABLET PO SCH ×2 (08:26→21:30)
[2020-06-21] MEDS: ZINC SULFATE 220 MG ( 50 ) CAPSULE PO SCH (08:26)
[2020-06-21] MEDS: ASCORBIC ACID 500 MG TABLET PO SCH ×2 (08:26→21:30)
[2020-06-21] MEDS: DOCUSATE SODIUM SUGAR FREE 100MG/10ML UDC NG SCH ×2 (08:26→18:07)
[2020-06-21] MEDS: CHOLECALCIFEROL (D3) 1000 UNIT TABLET PO SCH (08:26)
[2020-06-21] MEDS: ENOXAPARIN 30MG/0.3ML SYR SUBCUT SCH ×2 (08:28→21:30)
[2020-06-21 12:35] LABS: BG CARBOXYHEMOGLOBIN 0.5 % (0.5-1.5); BG DEOXYHEMOGLOBIN 10.6 % (0.0-5.0); BG FRACTION INSPIRED OXYGEN 80; BG HCO3 ACT 32.6 mmol/L (22.0-26.0); BG METHEMOGLOBIN 0.2 % (0.0-1.5); BG OXYGEN SATURATION 89.3 % (92.0-98.5); BG OXYHEMOGLOBIN 88.7 % (94.0-97.0); BG PCO2 52.8 mmHg (35.0-45.0); BG PH 7.408 (7.350-7.450); BG SAMPLE SITE RIGHT RADIAL; BG TOTAL HEMOGLOBIN 8.7 g/dL (12.0-18.0); BG VENT MODE VENT - AC
[2020-06-21] MEDS ORDERED: IVERMECTIN 3 MG TABLET PO NR (18:00)
[2020-06-22] VITALS (92 sets, daily range): BP systolic 100–189; BP diastolic 48–106
[2020-06-22] MEDS: BLOOD SUGAR DIAGNOSTIC STRIP TEST SCH ×5 (00:14→23:57)
[2020-06-22] MEDS: PIPERACILLIN/TAZOBACTAM 3.375 G in DEXT 5% WATER 100 ML IV SCH ×6 (00:18→23:31)
[2020-06-22] MEDS: METHYLPREDNISOLONE SOD SUCC 40 MG/ML VIAL IV SCH ×3 (00:29→17:31)
[2020-06-22] MEDS: FENTANYL CITRATE/PF 2,500 MCG in SODIUM CHLORIDE 0.9% 200 ML IV PRN ×3 (00:35→17:35)
[2020-06-22] MEDS: MIDAZOLAM 100MG/100ML PMX 100 ML IV PRN ×4 (01:00→23:57)
[2020-06-22] MEDS: IPRATROPIUM/ALBUTEROL 0.5-3(2.5)MG/3ML NEB HHN SCH ×5 (03:30→20:58)
[2020-06-22 05:00] LABS: HEMATOCRIT. 24.9 % (36.0-48.0); MEAN CORPUSCULAR HEMOGLOBIN 25.1 pg (28.0-32.0); MEAN CORPUSCULAR VOLUME 77.9 fL (81.0-99.0); MEAN PLATELET VOLUME 8.8 fl (7.4-10.4); PLATELET 284 x1000/uL (130-400); RED CELL DISTRIBUTION WIDTH 15.6 % (11.6-14.6)
[2020-06-22 05:08] LABS: CHLORIDE 101 mEq/L (98-107)
[2020-06-22] MEDS: INSULIN LISPRO 100 UNITS/ML SUBCUT SCH ×4 (05:40→17:33)
[2020-06-22 07:52] LABS: PLATELET ESTIMATE NORMAL
[2020-06-22] MEDS: ENOXAPARIN 30MG/0.3ML SYR SUBCUT SCH ×2 (08:00→21:30)
[2020-06-22] MEDS: ZINC SULFATE 220 MG ( 50 ) CAPSULE PO SCH (08:00)
[2020-06-22] MEDS: FAMOTIDINE 20MG TABLET PO SCH ×2 (08:00→21:30)
[2020-06-22] MEDS: DOCUSATE SODIUM SUGAR FREE 100MG/10ML UDC NG SCH ×2 (08:00→17:31)
[2020-06-22] MEDS: ASCORBIC ACID 500 MG TABLET PO SCH ×2 (08:00→21:30)
[2020-06-22] MEDS: CHOLECALCIFEROL (D3) 1000 UNIT TABLET PO SCH (08:00)
[2020-06-22 10:34] LABS: BG BASE EXCESS 3.6 mmol/L (-2.0-2.0); BG CARBOXYHEMOGLOBIN 0.5 % (0.5-1.5); BG DEOXYHEMOGLOBIN 13.1 % (0.0-5.0); BG METHEMOGLOBIN 0.2 % (0.0-1.5); BG OXYGEN SATURATION 86.8 % (92.0-98.5); BG OXYHEMOGLOBIN 86.2 % (94.0-97.0); BG PCO2 48.4 mmHg (35.0-45.0); BG PH 7.395 (7.350-7.450); BG PO2 55.5 mmHg (75.0-100.0); BG SAMPLE SITE RIGHT RADIAL; BG TOTAL HEMOGLOBIN 8.6 g/dL (12.0-18.0); BG VENT MODE VENT - AC
[2020-06-22] MEDS: PROPOFOL 10MG/ML 100ML 100 ML IV PRN ×3 (12:05→20:44)
[2020-06-23] VITALS (72 sets, daily range): BP systolic 99–204; BP diastolic 49–97
[2020-06-23] MEDS: INSULIN LISPRO 100 UNITS/ML SUBCUT SCH ×5 (00:01→23:35)
[2020-06-23] MEDS: METHYLPREDNISOLONE SOD SUCC 40 MG/ML VIAL IV SCH ×3 (01:32→16:58)
[2020-06-23] MEDS ORDERED: FENTANYL CITRATE/PF 2,500 MCG in SODIUM CHLORIDE 0.9% 200 ML IV PRN (02:30)
[2020-06-23] MEDS: IPRATROPIUM/ALBUTEROL 0.5-3(2.5)MG/3ML NEB HHN SCH ×5 (03:46→20:37)
[2020-06-23] MEDS: FENTANYL CITRATE 2,500 MCG in SODIUM CHLORIDE 0.9% 200 ML IV PRN ×3 (05:01→23:39)
[2020-06-23] MEDS: PIPERACILLIN/TAZOBACTAM 3.375 G in DEXT 5% WATER 100 ML IV SCH ×2 (05:09→12:23)
[2020-06-23 05:38] LABS: BASOPHILS % 0.2 % (0.0-2.0); EOSINOPHILS % 0.1 % (0.0-5.0); HEMATOCRIT. 24.1 % (36.0-48.0); HEMOGLOBIN. 7.7 g/dL (12.0-16.0); LYMPHOCYTES % 12.1 % (20.0-50.0); MEAN CORPUSCULAR VOLUME 78.4 fL (81.0-99.0); MEAN PLATELET VOLUME 8.9 fl (7.4-10.4); MONOCYTES % 7.3 % (2.0-8.0); NEUTROPHILS % 80.3 % (40.0-76.0); PLATELET 258 x1000/uL (130-400); RED BLOOD CELL COUNT 3.08 mill/uL (4.2-5.4); RED CELL DISTRIBUTION WIDTH 15.2 % (11.6-14.6)
[2020-06-23 05:40] LABS: CHLORIDE 100 mEq/L (98-107)
[2020-06-23] MEDS: BLOOD SUGAR DIAGNOSTIC STRIP TEST SCH ×4 (06:28→23:35)
[2020-06-23] MEDS ORDERED: IVERMECTIN 3 MG TABLET PO NR (09:00)
[2020-06-23] MEDS: FAMOTIDINE 20MG TABLET PO SCH ×2 (09:28→20:47)
[2020-06-23] MEDS: ENOXAPARIN 30MG/0.3ML SYR SUBCUT SCH ×2 (09:28→20:48)
[2020-06-23] MEDS: DOCUSATE SODIUM SUGAR FREE 100MG/10ML UDC NG SCH ×2 (09:29→16:59)
[2020-06-23] MEDS: CHOLECALCIFEROL (D3) 1000 UNIT TABLET PO SCH (09:29)
[2020-06-23] MEDS: MIDODRINE HCL 5MG TABLET PO PRN ×2 (09:29→16:59)
[2020-06-23] MEDS: ASCORBIC ACID 500 MG TABLET PO SCH ×2 (09:29→20:47)
[2020-06-23] MEDS: ZINC SULFATE 220 MG ( 50 ) CAPSULE PO SCH (09:29)
[2020-06-23] MEDS: MIDAZOLAM 100MG/100ML PMX 100 ML IV PRN ×2 (09:48→23:44)
[2020-06-23 11:55] LABS: BG BASE EXCESS 4.1 mmol/L (-2.0-2.0); BG CARBOXYHEMOGLOBIN 0.6 % (0.5-1.5); BG DEOXYHEMOGLOBIN 7.2 % (0.0-5.0); BG FRACTION INSPIRED OXYGEN 100; BG HCO3 ACT 30.2 mmol/L (22.0-26.0); BG METHEMOGLOBIN 0.3 % (0.0-1.5); BG OXYGEN SATURATION 92.7 % (92.0-98.5); BG OXYHEMOGLOBIN 91.9 % (94.0-97.0); BG PCO2 53.6 mmHg (35.0-45.0); BG PH 7.368 (7.350-7.450); BG PO2 70.2 mmHg (75.0-100.0); BG SAMPLE SITE LEFT RADIAL; BG TOTAL HEMOGLOBIN 8.7 g/dL (12.0-18.0); BG TOTAL RESPIRATORY RATE 22 b/min; BG VENT MODE PRVC
[2020-06-24] VITALS (72 sets, daily range): BP systolic 90–182; BP diastolic 47–94
[2020-06-24] MEDS: PROPOFOL 10MG/ML 100ML 100 ML IV PRN ×2 (02:38→17:44)
[2020-06-24] MEDS: IPRATROPIUM/ALBUTEROL 0.5-3(2.5)MG/3ML NEB HHN SCH ×3 (04:30→19:52)
[2020-06-24 04:57] LABS: BASOPHILS % 0.6 % (0.0-2.0); EOSINOPHILS % 0.3 % (0.0-5.0); HEMATOCRIT. 23.8 % (36.0-48.0); HEMOGLOBIN. 7.5 g/dL (12.0-16.0); LYMPHOCYTES % 11.3 % (20.0-50.0); MEAN CORPUSCULAR HEMOGLOBIN 24.6 pg (28.0-32.0); MEAN CORPUSCULAR VOLUME 78.4 fL (81.0-99.0); MEAN PLATELET VOLUME 9.2 fl (7.4-10.4); MONOCYTES % 5.5 % (2.0-8.0); NEUTROPHILS % 82.3 % (40.0-76.0); PLATELET 290 x1000/uL (130-400); RED BLOOD CELL COUNT 3.04 mill/uL (4.2-5.4); RED CELL DISTRIBUTION WIDTH 15.5 % (11.6-14.6)
[2020-06-24 05:01] LABS: CHLORIDE 102 mEq/L (98-107)
[2020-06-24] MEDS: METHYLPREDNISOLONE SOD SUCC 40 MG/ML VIAL IV SCH ×3 (05:31→21:22)
[2020-06-24] MEDS: INSULIN LISPRO 100 UNITS/ML SUBCUT SCH ×4 (05:47→23:44)
[2020-06-24] MEDS: BLOOD SUGAR DIAGNOSTIC STRIP TEST SCH ×4 (05:47→23:44)
[2020-06-24] MEDS: FENTANYL CITRATE 2,500 MCG in SODIUM CHLORIDE 0.9% 200 ML IV PRN (07:55)
[2020-06-24] MEDS ORDERED: PROPOFOL 10MG/ML 100ML 100 ML IV PRN (09:00)
[2020-06-24] MEDS: ZINC SULFATE 220 MG ( 50 ) CAPSULE PO SCH (09:22)
[2020-06-24] MEDS: DOCUSATE SODIUM SUGAR FREE 100MG/10ML UDC NG SCH ×2 (09:22→16:40)
[2020-06-24] MEDS: FAMOTIDINE 20MG TABLET PO SCH ×2 (09:22→21:22)
[2020-06-24] MEDS: ASCORBIC ACID 500 MG TABLET PO SCH ×2 (09:22→21:22)
[2020-06-24] MEDS: ENOXAPARIN 30MG/0.3ML SYR SUBCUT SCH ×2 (09:22→21:22)
[2020-06-24] MEDS: CHOLECALCIFEROL (D3) 1000 UNIT TABLET PO SCH (09:22)
[2020-06-24 10:53] LABS: BG BASE EXCESS 6.1 mmol/L (-2.0-2.0); BG CARBOXYHEMOGLOBIN 0.3 % (0.5-1.5); BG DEOXYHEMOGLOBIN 16.2 % (0.0-5.0); BG FRACTION INSPIRED OXYGEN 100; BG HCO3 ACT 31.4 mmol/L (22.0-26.0); BG METHEMOGLOBIN 0.1 % (0.0-1.5); BG OXYGEN SATURATION 83.7 % (92.0-98.5); BG OXYHEMOGLOBIN 83.4 % (94.0-97.0); BG PCO2 49.8 mmHg (35.0-45.0); BG PH 7.418 (7.350-7.450); BG SAMPLE SITE RIGHT RADIAL; BG TOTAL HEMOGLOBIN 9.2 g/dL (12.0-18.0); BG VENT MODE VENT - PRVC
[2020-06-24] MEDS: DEXT 5% WATER 250 ML IV SCH (12:42)
[2020-06-24] MEDS: MIDAZOLAM 100MG/100ML PMX 100 ML IV PRN (15:10)
[2020-06-24] MEDS: DEXTROSE 50% WATER 50ML SYRINGE IV PRN (16:47)
[2020-06-24] MEDS: FENTANYL CITRATE/PF 2,500 MCG in SODIUM CHLORIDE 0.9% 200 ML IV PRN (17:43)
[2020-06-24 18:13] LABS: BG BASE EXCESS 6.7 mmol/L (-2.0-2.0); BG CARBOXYHEMOGLOBIN 0.3 % (0.5-1.5); BG DEOXYHEMOGLOBIN 12.1 % (0.0-5.0); BG FRACTION INSPIRED OXYGEN 100; BG HCO3 ACT 31.9 mmol/L (22.0-26.0); BG OXYGEN SATURATION 87.9 % (92.0-98.5); BG OXYHEMOGLOBIN 87.6 % (94.0-97.0); BG PCO2 49.8 mmHg (35.0-45.0); BG PH 7.425 (7.350-7.450); BG PO2 55.1 mmHg (75.0-100.0); BG SAMPLE SITE RIGHT RADIAL; BG TOTAL HEMOGLOBIN 9.5 g/dL (12.0-18.0); BG VENT MODE PRVC
[2020-06-25] VITALS (100 sets, daily range): BP systolic 69–174; BP diastolic 39–96
[2020-06-25] MEDS: PROPOFOL 10MG/ML 100ML 100 ML IV PRN ×5 (01:35→20:50)
[2020-06-25] MEDS: IPRATROPIUM/ALBUTEROL 0.5-3(2.5)MG/3ML NEB HHN SCH ×4 (02:39→21:23)
[2020-06-25] MEDS: FENTANYL CITRATE/PF 2,500 MCG in SODIUM CHLORIDE 0.9% 200 ML IV PRN ×3 (02:55→17:45)
[2020-06-25] MEDS: MIDAZOLAM 100MG/100ML PMX 100 ML IV PRN ×3 (05:16→17:46)
[2020-06-25] MEDS: METHYLPREDNISOLONE SOD SUCC 40 MG/ML VIAL IV SCH ×3 (05:16→23:42)
[2020-06-25] MEDS: INSULIN LISPRO 100 UNITS/ML SUBCUT SCH ×4 (05:18→23:41)
[2020-06-25] MEDS: BLOOD SUGAR DIAGNOSTIC STRIP TEST SCH ×4 (05:18→23:42)
[2020-06-25 05:42] LABS: CHLORIDE 100 mEq/L (98-107)
[2020-06-25 05:43] LABS: HEMATOCRIT. 25.3 % (36.0-48.0); HEMOGLOBIN. 7.9 g/dL (12.0-16.0); MEAN CORPUSCULAR HEMOGLOBIN 24.2 pg (28.0-32.0); MEAN CORPUSCULAR VOLUME 77.4 fL (81.0-99.0); MEAN PLATELET VOLUME 9.1 fl (7.4-10.4); PLATELET 387 x1000/uL (130-400); RED BLOOD CELL COUNT 3.27 mill/uL (4.2-5.4); RED CELL DISTRIBUTION WIDTH 15.8 % (11.6-14.6)
[2020-06-25] MEDS: DOCUSATE SODIUM SUGAR FREE 100MG/10ML UDC NG SCH ×2 (08:46→17:41)
[2020-06-25] MEDS: CHOLECALCIFEROL (D3) 1000 UNIT TABLET PO SCH (08:46)
[2020-06-25] MEDS: ENOXAPARIN 30MG/0.3ML SYR SUBCUT SCH ×2 (08:46→20:50)
[2020-06-25] MEDS: ASCORBIC ACID 500 MG TABLET PO SCH ×2 (08:46→20:50)
[2020-06-25] MEDS: FAMOTIDINE 20MG TABLET PO SCH ×2 (08:46→20:50)
[2020-06-25] MEDS: ZINC SULFATE 220 MG ( 50 ) CAPSULE PO SCH (08:46)
[2020-06-25 09:40] LABS: PLATELET ESTIMATE NORMAL
[2020-06-25 10:32] LABS: BG BASE EXCESS 3.6 mmol/L (-2.0-2.0); BG CARBOXYHEMOGLOBIN 0.3 % (0.5-1.5); BG DEOXYHEMOGLOBIN 21.3 % (0.0-5.0); BG FRACTION INSPIRED OXYGEN 100; BG HCO3 ACT 30.1 mmol/L (22.0-26.0); BG METHEMOGLOBIN 0.3 % (0.0-1.5); BG OXYGEN SATURATION 78.6 % (92.0-98.5); BG OXYHEMOGLOBIN 78.1 % (94.0-97.0); BG PCO2 57.1 mmHg (35.0-45.0); BG PO2 49.2 mmHg (75.0-100.0); BG SAMPLE SITE RIGHT RADIAL; BG TOTAL HEMOGLOBIN 8.4 g/dL (12.0-18.0); BG TOTAL RESPIRATORY RATE 28 b/min; BG VENT MODE VENT- PRVC
[2020-06-25] MEDS: DEXT 5% WATER 250 ML IV SCH (12:07)
[2020-06-25] MEDS ORDERED: VANCOMYCIN 2,000 MG in DEXT 5% WATER 500 ML IV NR (18:30)
[2020-06-25] MEDS ORDERED: CEFEPIME HCL 1000MG/VIAL INJ IM SCH (21:00)
[2020-06-25] MEDS: CEFEPIME 1,000 MG in DEXTROSE 5% WATER 50 ML IV SCH (21:46)
[2020-06-26] VITALS (97 sets, daily range): BP systolic 75–209; BP diastolic 38–104
[2020-06-26] MEDS: VANCOMYCIN 750 MG PREMIX 150 ML IV SCH ×3 (01:07→19:07)
[2020-06-26] MEDS: MIDAZOLAM HCL 100 MG in DEXT 5% WATER 100 ML IV PRN ×2 (02:31→09:46)
[2020-06-26] MEDS: FENTANYL CITRATE/PF 2,500 MCG in SODIUM CHLORIDE 0.9% 200 ML IV PRN ×2 (02:32→11:19)
[2020-06-26] MEDS: IPRATROPIUM/ALBUTEROL 0.5-3(2.5)MG/3ML NEB HHN SCH ×4 (02:40→22:50)
[2020-06-26 05:45] LABS: HEMOGLOBIN. 8.1 g/dL (12.0-16.0); MEAN CORPUSCULAR HEMOGLOBIN 24.3 pg (28.0-32.0); MEAN CORPUSCULAR VOLUME 77.9 fL (81.0-99.0); MEAN PLATELET VOLUME 8.8 fl (7.4-10.4); PLATELET 449 x1000/uL (130-400); RED BLOOD CELL COUNT 3.34 mill/uL (4.2-5.4); RED CELL DISTRIBUTION WIDTH 15.7 % (11.6-14.6)
[2020-06-26 05:59] LABS: CHLORIDE 102 mEq/L (98-107)
[2020-06-26] MEDS: INSULIN LISPRO 100 UNITS/ML SUBCUT SCH ×3 (06:00→18:00)
[2020-06-26] MEDS: BLOOD SUGAR DIAGNOSTIC STRIP TEST SCH ×3 (06:24→18:56)
[2020-06-26] MEDS: PROPOFOL 10MG/ML 100ML 100 ML IV PRN ×2 (06:27→15:43)
[2020-06-26] MEDS: METHYLPREDNISOLONE SOD SUCC 125 MG/2 ML VIAL IV SCH ×3 (07:05→21:00)
[2020-06-26] MEDS: CEFEPIME 1,000 MG in DEXTROSE 5% WATER 50 ML IV SCH ×2 (08:59→20:16)
[2020-06-26] MEDS: ASCORBIC ACID 500 MG TABLET PO SCH ×2 (09:07→21:00)
[2020-06-26] MEDS: DOCUSATE SODIUM SUGAR FREE 100MG/10ML UDC NG SCH ×2 (09:07→19:07)
[2020-06-26] MEDS: ZINC SULFATE 220 MG ( 50 ) CAPSULE PO SCH (09:08)
[2020-06-26] MEDS: ENOXAPARIN 30MG/0.3ML SYR SUBCUT SCH ×2 (09:08→21:01)
[2020-06-26] MEDS: FAMOTIDINE 20MG TABLET PO SCH ×2 (09:08→21:00)
[2020-06-26] MEDS: CHOLECALCIFEROL (D3) 1000 UNIT TABLET PO SCH (09:08)
[2020-06-26] MEDS ORDERED: SODIUM POLYSTYRENE SULFONATE 15 G/60 ML BOT PO NR (10:00)
[2020-06-26 12:41] LABS: BG BASE EXCESS 6.9 mmol/L (-2.0-2.0); BG FRACTION INSPIRED OXYGEN 100; BG HCO3 ACT 30.3 mmol/L (22.0-26.0); BG PCO2 38.7 mmHg (35.0-45.0); BG PH 7.512 (7.350-7.450); BG PO2 158.5 mmHg (75.0-100.0); BG SAMPLE SITE RIGHT RADIAL; BG TOTAL RESPIRATORY RATE 22 b/min; BG VENT MODE VENT- PRVC
[2020-06-26] MEDS: DEXT 5% WATER 250 ML IV SCH (12:45)
[2020-06-26 14:04] LABS: PLATELET ESTIMATE INCREASED
[2020-06-26] MEDS: DOPAMINE 400MG/250ML PREMIX 250 ML IV SCH (21:22)
[2020-06-27] VITALS (72 sets, daily range): BP systolic 97–196; BP diastolic 44–95
[2020-06-27] MEDS: FENTANYL CITRATE/PF 2,500 MCG in SODIUM CHLORIDE 0.9% 200 ML IV PRN ×2 (00:11→12:24)
[2020-06-27] MEDS: BLOOD SUGAR DIAGNOSTIC STRIP TEST SCH ×5 (00:11→23:31)
[2020-06-27] MEDS: VANCOMYCIN 750 MG PREMIX 150 ML IV SCH ×3 (01:03→17:00)
[2020-06-27] MEDS: MIDAZOLAM 100MG/100ML PMX 100 ML IV PRN ×2 (01:07→19:27)
[2020-06-27] MEDS: PROPOFOL 10MG/ML 100ML 100 ML IV PRN (01:19)
[2020-06-27] MEDS: IPRATROPIUM/ALBUTEROL 0.5-3(2.5)MG/3ML NEB HHN SCH ×5 (05:02→20:22)
[2020-06-27 05:38] LABS: BASOPHILS % 0.4 % (0.0-2.0); EOSINOPHILS % 0.1 % (0.0-5.0); HEMATOCRIT. 23.8 % (36.0-48.0); HEMOGLOBIN. 7.6 g/dL (12.0-16.0); LYMPHOCYTES % 9.8 % (20.0-50.0); MEAN CORPUSCULAR VOLUME 77.8 fL (81.0-99.0); MEAN PLATELET VOLUME 8.9 fl (7.4-10.4); MONOCYTES % 6.7 % (2.0-8.0); PLATELET 370 x1000/uL (130-400); RED BLOOD CELL COUNT 3.06 mill/uL (4.2-5.4)
[2020-06-27] MEDS: METHYLPREDNISOLONE SOD SUCC 125 MG/2 ML VIAL IV SCH ×3 (05:43→21:29)
[2020-06-27] MEDS: INSULIN LISPRO 100 UNITS/ML SUBCUT SCH ×5 (05:44→23:31)
[2020-06-27 05:47] LABS: CHLORIDE 101 mEq/L (98-107)
[2020-06-27 05:57] LABS: VANCOMYCIN TROUGH 36.1 ug/mL (5.0-10.0)
[2020-06-27] MEDS: CEFEPIME 1,000 MG in DEXTROSE 5% WATER 50 ML IV SCH ×2 (08:22→20:17)
[2020-06-27] MEDS: ZINC SULFATE 220 MG ( 50 ) CAPSULE PO SCH (09:47)
[2020-06-27] MEDS: DOCUSATE SODIUM SUGAR FREE 100MG/10ML UDC NG SCH ×2 (09:47→16:59)
[2020-06-27] MEDS: FAMOTIDINE 20MG TABLET PO SCH ×2 (09:48→21:29)
[2020-06-27] MEDS: ASCORBIC ACID 500 MG TABLET PO SCH ×2 (09:49→21:29)
[2020-06-27] MEDS: CHOLECALCIFEROL (D3) 1000 UNIT TABLET PO SCH (09:49)
[2020-06-27] MEDS: ENOXAPARIN 30MG/0.3ML SYR SUBCUT SCH ×2 (09:50→21:29)
[2020-06-27 11:35] LABS: BG BASE EXCESS 4.8 mmol/L (-2.0-2.0); BG CARBOXYHEMOGLOBIN 1.2 % (0.5-1.5); BG DEOXYHEMOGLOBIN 22.9 % (0.0-5.0); BG FRACTION INSPIRED OXYGEN 100; BG HCO3 ACT 30.7 mmol/L (22.0-26.0); BG METHEMOGLOBIN 0.3 % (0.0-1.5); BG OXYGEN SATURATION 76.8 % (92.0-98.5); BG OXYHEMOGLOBIN 75.6 % (94.0-97.0); BG PCO2 53.9 mmHg (35.0-45.0); BG PH 7.374 (7.350-7.450); BG PO2 46.3 mmHg (75.0-100.0); BG SAMPLE SITE LEFT BRACHIAL; BG VENT MODE VENT- PRVC
[2020-06-27] MEDS: DEXT 5% WATER 250 ML IV SCH (12:45)
[2020-06-28] VITALS (79 sets, daily range): BP systolic 101–199; BP diastolic 47–105
[2020-06-28] MEDS: PROPOFOL 10MG/ML 100ML 100 ML IV PRN ×3 (00:04→17:36)
[2020-06-28] MEDS: IPRATROPIUM/ALBUTEROL 0.5-3(2.5)MG/3ML NEB HHN SCH ×6 (00:42→21:00)
[2020-06-28] MEDS: FENTANYL CITRATE/PF 2,500 MCG in SODIUM CHLORIDE 0.9% 200 ML IV PRN ×2 (02:21→17:29)
[2020-06-28] MEDS: BLOOD SUGAR DIAGNOSTIC STRIP TEST SCH ×3 (05:29→17:41)
[2020-06-28] MEDS: VANCOMYCIN 750 MG PREMIX 150 ML IV SCH ×2 (05:30→17:40)
[2020-06-28] MEDS: METHYLPREDNISOLONE SOD SUCC 125 MG/2 ML VIAL IV SCH ×2 (05:30→13:28)
[2020-06-28] MEDS: INSULIN LISPRO 100 UNITS/ML SUBCUT SCH ×3 (05:37→17:41)
[2020-06-28 05:43] LABS: HEMATOCRIT. 27.2 % (36.0-48.0); HEMOGLOBIN. 8.7 g/dL (12.0-16.0); MEAN CORPUSCULAR HEMOGLOBIN 25.2 pg (28.0-32.0); MEAN CORPUSCULAR VOLUME 79.2 fL (81.0-99.0); PLATELET 477 x1000/uL (130-400); RED BLOOD CELL COUNT 3.44 mill/uL (4.2-5.4); RED CELL DISTRIBUTION WIDTH 15.8 % (11.6-14.6)
[2020-06-28 05:46] LABS: CHLORIDE 101 mEq/L (98-107)
[2020-06-28 07:53] LABS: PLATELET ESTIMATE INCREASED
[2020-06-28 08:19] LABS: BG CARBOXYHEMOGLOBIN 0.4 % (0.5-1.5); BG DEOXYHEMOGLOBIN 11.3 % (0.0-5.0); BG HCO3 ACT 30.6 mmol/L (22.0-26.0); BG METHEMOGLOBIN 0.2 % (0.0-1.5); BG OXYGEN SATURATION 88.6 % (92.0-98.5); BG OXYHEMOGLOBIN 88.1 % (94.0-97.0); BG PCO2 51.5 mmHg (35.0-45.0); BG PH 7.392 (7.350-7.450); BG PO2 60.5 mmHg (75.0-100.0); BG SAMPLE SITE RIGHT RADIAL; BG TOTAL HEMOGLOBIN 8.4 g/dL (12.0-18.0); BG VENT MODE VENT- PRVC
[2020-06-28] MEDS: CEFEPIME 1,000 MG in DEXTROSE 5% WATER 50 ML IV SCH ×2 (08:38→20:08)
[2020-06-28] MEDS: MIDODRINE HCL 5MG TABLET PO PRN ×2 (08:39→17:40)
[2020-06-28] MEDS: ZINC SULFATE 220 MG ( 50 ) CAPSULE PO SCH (08:39)
[2020-06-28] MEDS: CHOLECALCIFEROL (D3) 1000 UNIT TABLET PO SCH (08:40)
[2020-06-28] MEDS: ENOXAPARIN 30MG/0.3ML SYR SUBCUT SCH ×2 (08:40→20:08)
[2020-06-28] MEDS: FAMOTIDINE 20MG TABLET PO SCH ×2 (08:40→20:08)
[2020-06-28] MEDS: DOCUSATE SODIUM SUGAR FREE 100MG/10ML UDC NG SCH ×2 (08:40→17:40)
[2020-06-28] MEDS: ASCORBIC ACID 500 MG TABLET PO SCH ×2 (08:40→20:08)
[2020-06-28] MEDS ORDERED: PROPOFOL 10MG/ML 100ML 100 ML IV PRN (10:30)
[2020-06-28] MEDS: MIDAZOLAM 100MG/100ML PMX 100 ML IV PRN (11:01)
[2020-06-28] MEDS: DEXT 5% WATER 250 ML IV SCH (13:29)
[2020-06-29] VITALS (89 sets, daily range): BP systolic 53–185; BP diastolic 38–120
[2020-06-29] MEDS: PROPOFOL 10MG/ML 100ML 100 ML IV PRN (01:50)
[2020-06-29 05:36] LABS: BASOPHILS % 0.3 % (0.0-2.0); EOSINOPHILS % 1.7 % (0.0-5.0); HEMATOCRIT. 23.8 % (36.0-48.0); HEMOGLOBIN. 7.5 g/dL (12.0-16.0); LYMPHOCYTES % 8.4 % (20.0-50.0); MEAN CORPUSCULAR HEMOGLOBIN 24.6 pg (28.0-32.0); MEAN CORPUSCULAR VOLUME 78.3 fL (81.0-99.0); MEAN PLATELET VOLUME 8.4 fl (7.4-10.4); MONOCYTES % 8.5 % (2.0-8.0); NEUTROPHILS % 81.1 % (40.0-76.0); PLATELET 411 x1000/uL (130-400); RED BLOOD CELL COUNT 3.03 mill/uL (4.2-5.4); RED CELL DISTRIBUTION WIDTH 15.9 % (11.6-14.6)
[2020-06-29 05:50] LABS: CHLORIDE 102 mEq/L (98-107)
[2020-06-29] MEDS: INSULIN LISPRO 100 UNITS/ML SUBCUT SCH ×4 (06:00→17:16)
[2020-06-29] MEDS: BLOOD SUGAR DIAGNOSTIC STRIP TEST SCH ×4 (06:03→17:16)
[2020-06-29] MEDS: VANCOMYCIN 750 MG PREMIX 150 ML IV SCH ×2 (06:14→17:25)
[2020-06-29] MEDS: DEXTROSE 50% WATER 50ML SYRINGE IV PRN (06:20)
[2020-06-29] MEDS: METHYLPREDNISOLONE SOD SUCC 40 MG/ML VIAL IV SCH ×2 (06:21→17:24)
[2020-06-29] MEDS: IPRATROPIUM/ALBUTEROL 0.5-3(2.5)MG/3ML NEB HHN SCH ×4 (08:35→21:21)
[2020-06-29] MEDS: DOCUSATE SODIUM SUGAR FREE 100MG/10ML UDC NG SCH ×2 (09:37→17:25)
[2020-06-29] MEDS: ZINC SULFATE 220 MG ( 50 ) CAPSULE PO SCH (09:38)
[2020-06-29] MEDS: CHOLECALCIFEROL (D3) 1000 UNIT TABLET PO SCH (09:38)
[2020-06-29] MEDS: FAMOTIDINE 20MG TABLET PO SCH (09:38)
[2020-06-29] MEDS: MIDODRINE HCL 5MG TABLET PO PRN (09:38)
[2020-06-29] MEDS: ASCORBIC ACID 500 MG TABLET PO SCH ×2 (09:39→21:45)
[2020-06-29] MEDS: CEFEPIME 1,000 MG in DEXTROSE 5% WATER 50 ML IV SCH ×2 (09:42→22:22)
[2020-06-29] MEDS: MIDAZOLAM 100MG/100ML PMX 100 ML IV PRN (09:42)
[2020-06-29] MEDS: ENOXAPARIN 30MG/0.3ML SYR SUBCUT SCH ×2 (09:49→21:45)
[2020-06-29] MEDS: LACTULOSE 20G/30ML UDC PO PRN (11:24)
[2020-06-29] MEDS: FENTANYL CITRATE/PF 2,500 MCG in SODIUM CHLORIDE 0.9% 200 ML IV PRN (11:25)
[2020-06-29] MEDS: DEXT 5% WATER 250 ML IV SCH (11:26)
[2020-06-29] MEDS ORDERED: DEXTROSE 50% WATER 50ML SYRINGE IV PRN (11:45)
[2020-06-29] MEDS ORDERED: KCL 10MEQ/50ML PREMIX 50 ML IV NR (12:00)
[2020-06-29] MEDS: PROPOFOL 10MG/ML 100ML 100 ML IV SCH (20:33)
[2020-06-30] VITALS (101 sets, daily range): BP systolic 81–194; BP diastolic 37–111
[2020-06-30] MEDS: DEXTROSE 50% WATER 50ML SYRINGE IV PRN (00:29)
[2020-06-30] MEDS: BLOOD SUGAR DIAGNOSTIC STRIP TEST SCH ×4 (00:30→18:23)
[2020-06-30] MEDS: IPRATROPIUM/ALBUTEROL 0.5-3(2.5)MG/3ML NEB HHN SCH ×8 (02:00→21:40)
[2020-06-30] MEDS: NOREPINEPHRINE 32 MG in DEXT 5% WATER 218 ML IV PRN ×2 (02:32→02:38)
[2020-06-30] MEDS: FENTANYL CITRATE/PF 2,500 MCG in SODIUM CHLORIDE 0.9% 200 ML IV PRN ×2 (03:44→14:26)
[2020-06-30] MEDS: VANCOMYCIN 750 MG PREMIX 150 ML IV SCH (05:00)
[2020-06-30] MEDS: METHYLPREDNISOLONE SOD SUCC 40 MG/ML VIAL IV SCH ×2 (05:00→18:30)
[2020-06-30] MEDS: INSULIN LISPRO 100 UNITS/ML SUBCUT SCH ×4 (05:33→18:00)
[2020-06-30 05:58] LABS: CHLORIDE 103 mEq/L (98-107)
[2020-06-30] MEDS: MIDAZOLAM 100MG/100ML PMX 100 ML IV PRN ×2 (05:59→18:30)
[2020-06-30 06:14] LABS: HEMATOCRIT. 29.9 % (36.0-48.0); HEMOGLOBIN. 9.3 g/dL (12.0-16.0); MEAN CORPUSCULAR HEMOGLOBIN 24.5 pg (28.0-32.0); MEAN CORPUSCULAR VOLUME 78.6 fL (81.0-99.0); MEAN PLATELET VOLUME 9.4 fl (7.4-10.4); PLATELET 408 x1000/uL (130-400); RED CELL DISTRIBUTION WIDTH 15.6 % (11.6-14.6)
[2020-06-30] MEDS: ZINC SULFATE 220 MG ( 50 ) CAPSULE PO SCH (09:06)
[2020-06-30] MEDS: CHOLECALCIFEROL (D3) 1000 UNIT TABLET PO SCH (09:06)
[2020-06-30] MEDS: ENOXAPARIN 30MG/0.3ML SYR SUBCUT SCH ×2 (09:06→21:04)
[2020-06-30] MEDS: ASCORBIC ACID 500 MG TABLET PO SCH ×2 (09:06→21:04)
[2020-06-30] MEDS: DOCUSATE SODIUM SUGAR FREE 100MG/10ML UDC NG SCH ×2 (09:06→18:30)
[2020-06-30] MEDS: CEFEPIME 1,000 MG in DEXTROSE 5% WATER 50 ML IV SCH ×2 (09:06→18:30)
[2020-06-30] MEDS: PROPOFOL 10MG/ML 100ML 100 ML IV SCH ×2 (10:43→23:47)
[2020-06-30] MEDS: DEXT 5% WATER 250 ML IV SCH (12:45)
[2020-06-30 13:33] LABS: NUCLEATED RED BLOOD CELLS 2 /100 WBC
[2020-06-30 13:34] LABS: PLATELET ESTIMATE SLIGHTLY INCREASED
[2020-06-30] MEDS: DEXT 5%/0.9% NACL 1,000 ML IV SCH (18:29)
[2020-07-01] VITALS (97 sets, daily range): BP systolic 114–230; BP diastolic 43–105
[2020-07-01] MEDS: BLOOD SUGAR DIAGNOSTIC STRIP TEST SCH ×4 (00:51→18:41)
[2020-07-01] MEDS: FENTANYL CITRATE/PF 2,500 MCG in SODIUM CHLORIDE 0.9% 200 ML IV PRN ×2 (00:56→09:28)
[2020-07-01] MEDS: IPRATROPIUM/ALBUTEROL 0.5-3(2.5)MG/3ML NEB HHN SCH ×3 (03:50→19:42)
[2020-07-01] MEDS: PROPOFOL 10MG/ML 100ML 100 ML IV PRN ×4 (04:31→22:44)
[2020-07-01] MEDS: MIDAZOLAM 100MG/100ML PMX 100 ML IV PRN (04:32)
[2020-07-01 05:51] LABS: BASOPHILS % 0.6 % (0.0-2.0); EOSINOPHILS % 0.4 % (0.0-5.0); LYMPHOCYTES % 10.8 % (20.0-50.0); MEAN CORPUSCULAR HEMOGLOBIN 25.1 pg (28.0-32.0); MEAN CORPUSCULAR VOLUME 78.1 fL (81.0-99.0); MEAN PLATELET VOLUME 9.3 fl (7.4-10.4); MONOCYTES % 6.3 % (2.0-8.0); NEUTROPHILS % 81.9 % (40.0-76.0); PLATELET 291 x1000/uL (130-400); RED BLOOD CELL COUNT 2.58 mill/uL (4.2-5.4); RED CELL DISTRIBUTION WIDTH 16.2 % (11.6-14.6)
[2020-07-01] MEDS: METHYLPREDNISOLONE SOD SUCC 40 MG/ML VIAL IV SCH ×2 (06:00→18:46)
[2020-07-01] MEDS: INSULIN LISPRO 100 UNITS/ML SUBCUT SCH ×4 (06:00→18:47)
[2020-07-01 06:01] LABS: CHLORIDE 105 mEq/L (98-107)
[2020-07-01 07:06] LABS: HEMOGLOBIN. 6.5 g/dL (12.0-16.0)
[2020-07-01 07:07] LABS: HEMATOCRIT. 20.1 % (36.0-48.0)
[2020-07-01] MEDS: DEXT 5%/0.9% NACL 1,000 ML IV SCH (07:35)
[2020-07-01] MEDS: DOCUSATE SODIUM SUGAR FREE 100MG/10ML UDC NG SCH ×2 (09:28→18:46)
[2020-07-01] MEDS: LACTULOSE 20G/30ML UDC PO PRN (09:28)
[2020-07-01] MEDS: ENOXAPARIN 30MG/0.3ML SYR SUBCUT SCH (09:29)
[2020-07-01] MEDS: CHOLECALCIFEROL (D3) 1000 UNIT TABLET PO SCH (09:29)
[2020-07-01] MEDS: ZINC SULFATE 220 MG ( 50 ) CAPSULE PO SCH (09:29)
[2020-07-01] MEDS: ASCORBIC ACID 500 MG TABLET PO SCH ×2 (09:31→21:17)
[2020-07-01] MEDS: MIDODRINE HCL 5MG TABLET PO PRN (09:31)
[2020-07-01] MEDS: DOPAMINE 400MG/250ML PREMIX 250 ML IV SCH (09:32)
[2020-07-01 10:47] LABS: HEMATOCRIT. 25.1 % (36.0-48.0); HEMOGLOBIN. 7.9 g/dL (12.0-16.0); MEAN CORPUSCULAR HEMOGLOBIN 24.8 pg (28.0-32.0); MEAN CORPUSCULAR VOLUME 78.6 fL (81.0-99.0); MEAN PLATELET VOLUME 8.4 fl (7.4-10.4); PLATELET 378 x1000/uL (130-400); RED CELL DISTRIBUTION WIDTH 15.9 % (11.6-14.6)
[2020-07-01 11:27] LABS: PLATELET ESTIMATE NORMAL
[2020-07-01] MEDS: DEXT 5% WATER 250 ML IV SCH (12:45)
[2020-07-02] VITALS (88 sets, daily range): BP systolic 104–198; BP diastolic 52–114
[2020-07-02] MEDS: IPRATROPIUM/ALBUTEROL 0.5-3(2.5)MG/3ML NEB HHN SCH ×4 (02:20→21:36)
[2020-07-02] MEDS: PROPOFOL 10MG/ML 100ML 100 ML IV PRN ×7 (02:42→22:54)
[2020-07-02] MEDS: DEXT 5%/0.9% NACL 1,000 ML IV SCH ×2 (04:46→13:36)
[2020-07-02] MEDS: METHYLPREDNISOLONE SOD SUCC 40 MG/ML VIAL IV SCH ×2 (05:22→18:43)
[2020-07-02 05:57] LABS: HEMATOCRIT. 24.9 % (36.0-48.0); HEMOGLOBIN. 7.9 g/dL (12.0-16.0); PLATELET 392 x1000/uL (130-400); RED BLOOD CELL COUNT 3.16 mill/uL (4.2-5.4); RED CELL DISTRIBUTION WIDTH 16.2 % (11.6-14.6)
[2020-07-02] MEDS: BLOOD SUGAR DIAGNOSTIC STRIP TEST SCH ×4 (06:00→18:40)
[2020-07-02] MEDS: INSULIN LISPRO 100 UNITS/ML SUBCUT SCH ×4 (06:00→18:00)
[2020-07-02 06:48] LABS: CHLORIDE 103 mEq/L (98-107)
[2020-07-02 08:45] LABS: PLATELET ESTIMATE NORMAL
[2020-07-02] MEDS: CHOLECALCIFEROL (D3) 1000 UNIT TABLET PO SCH (09:48)
[2020-07-02] MEDS: LACTULOSE 20G/30ML UDC PO PRN (09:48)
[2020-07-02] MEDS: DOCUSATE SODIUM SUGAR FREE 100MG/10ML UDC NG SCH ×2 (09:48→17:00)
[2020-07-02] MEDS: ASCORBIC ACID 500 MG TABLET PO SCH ×2 (09:49→21:18)
[2020-07-02] MEDS: ZINC SULFATE 220 MG ( 50 ) CAPSULE PO SCH (09:49)
[2020-07-02] MEDS: FENTANYL CITRATE/PF 2,500 MCG in SODIUM CHLORIDE 0.9% 200 ML IV PRN ×2 (09:53→19:34)
[2020-07-02 12:58] LABS: BG CARBOXYHEMOGLOBIN 0.8 % (0.5-1.5); BG DEOXYHEMOGLOBIN 15.3 % (0.0-5.0); BG FRACTION INSPIRED OXYGEN 100; BG HCO3 ACT 29.6 mmol/L (22.0-26.0); BG METHEMOGLOBIN 0.2 % (0.0-1.5); BG OXYGEN SATURATION 84.5 % (92.0-98.5); BG OXYHEMOGLOBIN 83.7 % (94.0-97.0); BG PCO2 56.3 mmHg (35.0-45.0); BG PH 7.339 (7.350-7.450); BG PO2 52.7 mmHg (75.0-100.0); BG SAMPLE SITE RIGHT RADIAL; BG TOTAL HEMOGLOBIN 10.2 g/dL (12.0-18.0); BG VENT MODE VENT - PRVC
[2020-07-02] MEDS ORDERED: FUROSEMIDE 40MG/4ML VIAL IVP NR ×2 (13:15→14:00)
[2020-07-03] VITALS (95 sets, daily range): BP systolic 66–186; BP diastolic 38–104
[2020-07-03] MEDS: BLOOD SUGAR DIAGNOSTIC STRIP TEST SCH ×4 (00:47→18:00)
[2020-07-03] MEDS: DOPAMINE 400MG/250ML PREMIX 250 ML IV SCH (02:24)
[2020-07-03] MEDS: DEXTROSE 50% WATER 50ML SYRINGE IV PRN ×8 (03:40→22:22)
[2020-07-03] MEDS: IPRATROPIUM/ALBUTEROL 0.5-3(2.5)MG/3ML NEB HHN SCH ×4 (04:38→17:50)
[2020-07-03] MEDS: PROPOFOL 10MG/ML 100ML 100 ML IV PRN ×5 (05:20→23:45)
[2020-07-03] MEDS: METHYLPREDNISOLONE SOD SUCC 40 MG/ML VIAL IV SCH (05:21)
[2020-07-03] MEDS: DEXT 5%/0.9% NACL 1,000 ML IV SCH (05:21)
[2020-07-03 05:57] LABS: BASOPHILS % 0.6 % (0.0-2.0); EOSINOPHILS % 1.6 % (0.0-5.0); HEMATOCRIT. 24.4 % (36.0-48.0); HEMOGLOBIN. 8.1 g/dL (12.0-16.0); LYMPHOCYTES % 10.8 % (20.0-50.0); MEAN CORPUSCULAR HEMOGLOBIN 26.9 pg (28.0-32.0); MEAN CORPUSCULAR VOLUME 81.4 fL (81.0-99.0); MONOCYTES % 5.4 % (2.0-8.0); NEUTROPHILS % 81.6 % (40.0-76.0); RED BLOOD CELL COUNT 2.99 mill/uL (4.2-5.4); RED CELL DISTRIBUTION WIDTH 17.2 % (11.6-14.6)
[2020-07-03] MEDS: INSULIN LISPRO 100 UNITS/ML SUBCUT SCH ×4 (06:00→18:00)
[2020-07-03] MEDS: FENTANYL CITRATE/PF 2,500 MCG in SODIUM CHLORIDE 0.9% 200 ML IV PRN (06:10)
[2020-07-03 08:29] LABS: PLATELET 293 x1000/uL (130-400)
[2020-07-03] MEDS: DOCUSATE SODIUM SUGAR FREE 100MG/10ML UDC NG SCH ×2 (09:57→17:00)
[2020-07-03] MEDS: ZINC SULFATE 220 MG ( 50 ) CAPSULE PO SCH (09:57)
[2020-07-03] MEDS: DEXT 10% WATER 1,000 ML IV SCH (09:57)
[2020-07-03] MEDS: ASCORBIC ACID 500 MG TABLET PO SCH ×2 (09:58→21:33)
[2020-07-03] MEDS: CHOLECALCIFEROL (D3) 1000 UNIT TABLET PO SCH (09:58)
[2020-07-03 10:43] LABS: CHLORIDE 106 mEq/L (98-107)
[2020-07-03 11:20] LABS: BG BASE EXCESS 6.5 mmol/L (-2.0-2.0); BG CARBOXYHEMOGLOBIN 0.3 % (0.5-1.5); BG DEOXYHEMOGLOBIN 32.8 % (0.0-5.0); BG HCO3 ACT 33.7 mmol/L (22.0-26.0); BG METHEMOGLOBIN 0.2 % (0.0-1.5); BG OXYHEMOGLOBIN 66.7 % (94.0-97.0); BG PCO2 63.3 mmHg (35.0-45.0); BG PH 7.344 (7.350-7.450); BG PO2 37.4 mmHg (75.0-100.0); BG SAMPLE SITE RIGHT RADIAL; BG TOTAL HEMOGLOBIN 10.7 g/dL (12.0-18.0); BG VENT MODE VENT- PRVC
[2020-07-03] MEDS: LACTULOSE 20G/30ML UDC PO PRN (21:33)
[2020-07-04] VITALS (97 sets, daily range): BP systolic 58–183; BP diastolic 38–91
[2020-07-04] MEDS: BLOOD SUGAR DIAGNOSTIC STRIP TEST SCH ×4 (00:01→18:00)
[2020-07-04] MEDS: IPRATROPIUM/ALBUTEROL 0.5-3(2.5)MG/3ML NEB HHN SCH ×4 (00:09→15:30)
[2020-07-04] MEDS: DEXT 10% WATER 1,000 ML IV SCH ×2 (01:05→17:45)
[2020-07-04] MEDS: FENTANYL CITRATE/PF 2,500 MCG in SODIUM CHLORIDE 0.9% 200 ML IV PRN ×2 (02:21→15:00)
[2020-07-04] MEDS: DEXTROSE 50% WATER 50ML SYRINGE IV PRN ×3 (02:27→05:23)
[2020-07-04] MEDS: PROPOFOL 10MG/ML 100ML 100 ML IV PRN ×4 (03:34→18:36)
[2020-07-04 05:44] LABS: CHLORIDE 103 mEq/L (98-107)
[2020-07-04] MEDS: INSULIN LISPRO 100 UNITS/ML SUBCUT SCH ×4 (06:00→18:00)
[2020-07-04] MEDS: METHYLPREDNISOLONE SOD SUCC 40 MG/ML VIAL IV SCH (09:34)
[2020-07-04] MEDS: CHOLECALCIFEROL (D3) 1000 UNIT TABLET PO SCH (09:35)
[2020-07-04] MEDS: ASCORBIC ACID 500 MG TABLET PO SCH ×2 (09:35→21:00)
[2020-07-04] MEDS: ZINC SULFATE 220 MG ( 50 ) CAPSULE PO SCH (09:35)
[2020-07-04] MEDS: DOCUSATE SODIUM SUGAR FREE 100MG/10ML UDC NG SCH ×2 (09:35→18:34)
[2020-07-04] MEDS: DOPAMINE 400MG/250ML PREMIX 250 ML IV SCH ×2 (18:35→23:26)
[2020-07-05] VITALS (40 sets, daily range): BP systolic 58–136; BP diastolic 44–71
[2020-07-05] MEDS: IPRATROPIUM/ALBUTEROL 0.5-3(2.5)MG/3ML NEB HHN SCH (03:55)
[2020-07-05] MEDS: FENTANYL CITRATE/PF 2,500 MCG in SODIUM CHLORIDE 0.9% 200 ML IV PRN (04:26)
[2020-07-05] MEDS: BLOOD SUGAR DIAGNOSTIC STRIP TEST SCH ×3 (05:23→12:12)
[2020-07-05] MEDS: INSULIN LISPRO 100 UNITS/ML SUBCUT SCH ×3 (05:25→12:00)
[2020-07-05] MEDS: PROPOFOL 10MG/ML 100ML 100 ML IV PRN ×2 (07:51→11:48)
[2020-07-05] MEDS: DOPAMINE 400MG/250ML PREMIX 250 ML IV SCH (08:48)
[2020-07-05] MEDS: CHOLECALCIFEROL (D3) 1000 UNIT TABLET PO SCH (08:48)
[2020-07-05] MEDS: DOCUSATE SODIUM SUGAR FREE 100MG/10ML UDC NG SCH (08:48)
[2020-07-05] MEDS: ASCORBIC ACID 500 MG TABLET PO SCH (08:48)
[2020-07-05] MEDS: ZINC SULFATE 220 MG ( 50 ) CAPSULE PO SCH (08:48)
[2020-07-05] MEDS: METHYLPREDNISOLONE SOD SUCC 40 MG/ML VIAL IV SCH (08:48)
[2020-07-05] MEDS ORDERED: FENTANYL CITRATE/PF 2,500 MCG in SODIUM CHLORIDE 0.9% 200 ML IV PRN (10:00)
[2020-07-05] MEDS ORDERED: DOPAMINE 400MG/250ML PREMIX 250 ML IV SCH (11:37)
[2020-07-05] MEDS: DEXT 10% WATER 1,000 ML IV SCH (11:47)
[2020-07-05] MEDS ORDERED: MORPHINE SULFATE 2 MG/ML CPJ (NOT FOR IM USE) IV PRN (15:15)
[2020-07-05] MEDS ORDERED: MORPHINE SULFATE 2 MG/ML CPJ (NOT FOR IM USE) IV ONE (16:00)
== END 2020-07-05 15:48 | disposition expired | DRG 870 ==
LOC: ER 07:34 → 7EST 10:48 → ENRESERV 23:31 → 7WST 06-02 15:45 → MICUSO 06-06 02:15
PROVIDERS: ADMIT Ophthalmology; ATTEND Ophthalmology
PROC: 5A12012 Performance of Cardiac Output, Single, Manual (ICD-10-PCS; 2020-05-31)
PROC: 5A1955Z Respiratory Ventilation, Greater than 96 Consecutive Hours (ICD-10-PCS; principal; 2020-06-03)
PROC: 02HV33Z Insertion of Infusion Device into Superior Vena Cava, Percutaneous Approach (ICD-10-PCS; 2020-06-03)
PROC: B548ZZA Ultrasonography of Superior Vena Cava, Guidance (ICD-10-PCS; 2020-06-03)
PROC: 0BH18EZ Insertion of Endotracheal Airway into Trachea, Via Natural or Artificial Opening Endoscopic (ICD-10-PCS; 2020-06-03)
DX: A41.89 Other specified sepsis (principal); U07.1 COVID-19; J12.82 Pneumonia due to coronavirus disease 2019; J96.01 Acute respiratory failure with hypoxia; J18.9 Pneumonia, unspecified organism; I50.43 Acute on chronic combined systolic (congestive) and diastolic (congestive) heart failure; Z99.11 Dependence on respirator [ventilator] status; J44.0 Chronic obstructive pulmonary disease with (acute) lower respiratory infection; E87.2 Acidosis; D68.69 Other thrombophilia; J44.1 Chronic obstructive pulmonary disease with (acute) exacerbation; G93.49 Other encephalopathy; I11.0 Hypertensive heart disease with heart failure; E87.5 Hyperkalemia; F03.90 Unspecified dementia, unspecified severity, without behavioral disturbance, psychotic disturbance, mood disturbance, and anxiety; D64.9 Anemia, unspecified; E11.649 Type 2 diabetes mellitus with hypoglycemia without coma; E66.09 Other obesity due to excess calories; E87.6 Hypokalemia; F17.210 Nicotine dependence, cigarettes, uncomplicated; G47.33 Obstructive sleep apnea (adult) (pediatric); I48.0 Paroxysmal atrial fibrillation; I49.1 Atrial premature depolarization; I46.9 Cardiac arrest, cause unspecified; I49.3 Ventricular premature depolarization; Z51.5 Encounter for palliative care; Z66 Do not resuscitate; Z68.39 Body mass index [BMI] 39.0-39.9, adult; Z79.4 Long term (current) use of insulin; Z85.3 Personal history of malignant neoplasm of breast; Z79.899 Other long term (current) drug therapy; Z86.74 Personal history of sudden cardiac arrest; Z90.10 Acquired absence of unspecified breast and nipple; Z79.2 Long term (current) use of antibiotics
CPT/HCPCS: 36415; 36600; 71045; 76937; 80048; 80053; 80061; 80202; 81003; 82140; 82375; 82550; 82728; 82805; 82962; 83036; 83605; 83615; 83735; 84145; 84443; 84478; 84484; 85025; 85027; 85379; 85384; 86140; 86141; 86850; 86900; 86920; 87426; 93970; 94003; 94640; 99291; C1725; C9803; J0456; J0692; J0696; J1100; J1200; J1265; J1650; J1815; J1940; J2060; J2250; J2270; J2543; J2704; J2920; J2930; J3010; J3370; J3480; J3490; J7030; J7040; J7042; J7050; J7060; J7070; J7608; U0003; A4315